=== PATIENT | female | born 1965 | race Caucasian/White ===

== ENCOUNTER 2016-11-09 16:58 | Inpatient (IN) | payer BC ==
--- NOTE | 2016-11-09 18:20 | PCM.HP ---
H&P History of Present Illness - General Date of Service: 11/09/16 Source of Information: Patient, Family History Limitations: Reports: No Limitations - History of Present Illness Initial Comments - Free Text/Narative: She started feeling weak this morning and unable to continue with work and went home. She has be N and Vomiting. She also has pain with a shallow breath and is short of breath. She has a significant headache. Also having dizziness with an motion. Onset of Symptoms: Reports: Today Duration of Symptoms: Reports: Hour(s): Location: Reports: Head, Chest Quality: Reports: Ache Severity: Severe Improves with: Reports: Immobilization Worsens with: Reports: Breathing Associated Symptoms: Reports: Cough, Nausea/Vomiting, Shortness of Breath Headache Pain Score (Numeric/FACES): 6 - Related Data Allergies/Adverse Reactions: Allergies Allergy/AdvReac Type Severity Reaction Status Date / Time Penicillins Allergy Mild Hives Verified 07/29/16 13:39 Sulfa (Sulfonamide Allergy hives Verified 07/29/16 13:39 Antibiotics) itching Home Medications: Home Meds Estradiol [Estrace] 1 mg PO DAILY 02/02/13 [History] Multivitamin [Multi-Vitamin Daily] 1 each PO DAILY 09/06/15 [History] Topiramate [Topiramate] 50 mg PO BID 09/09/15 [History] Dextroamphetamine/Amphetamine [Adderall] 30 mg PO QAM 02/07/16 [History] Prazosin HCl [Prazosin] 2 mg PO BEDTIME 02/07/16 [History] QUEtiapine Fumarate [Seroquel] 25 - 50 mg PO BEDTIME 02/07/16 [History] QUEtiapine Fumarate [Seroquel] 25 - 50 mg PO BID PRN 02/07/16 [History] fentaNYL [Fentanyl] 25 mcg TD ASDIRECTED 02/07/16 [History] oxyCODONE 5 mg PO ASDIRECTED PRN 02/07/16 [History] Metoprolol Succinate [Toprol XL] 50 mg PO DAILY 02/10/16 [History] Methocarbamol 750 mg PO Q4HR PRN 04/20/16 [History] Past Medical History - Past Health History Medical/Surgical History: Denies Medical/Surgical History HEENT History: Reports: Cataract, Sinusitis Cardiovascular History: Reports: High Cholesterol, Hypertension Genitourinary History: Reports: Pyelonephritis, UTI, Recurrent [employer] History: Reports: , Prolapsed Uterus Musculoskeletal History: Reports: Back Pain, Chronic, Other (See Below) Other Musculoskeletal History: epicondilitis Neurological History: Reports: Concussion Psychiatric History: Reports: ADHD, Anxiety, Depression, Learning Disability, Mood Swings, Panic Attack, PTSD Dermatologic History: Reports: Other (See Below) Other Dermatologic History: excessive dryness - Infectious Disease History Infectious Disease History: Reports: Chicken Pox - Past Surgical History Head Surgeries/Procedures: Reports: None HEENT Surgical History: Reports: Cataract Surgery, Other (See Below) GI Surgical History: Reports: Appendectomy, Colonoscopy, Hernia, Abdominal Female Surgical History: Reports: Cervical Cryotherapy, Hysterectomy Musculoskeletal Surgical History: Reports: Carpal Tunnel, Other (See Below) Social & Family History - Family History Family Medical History: Noncontributory - Tobacco Use Smoking Status *Q: Current Every Day Smoker Years of Tobacco use: 35 Packs/Tins Daily: 1 Used Tobacco, but Quit: No Month Tobacco Last Used: JAN Second Hand Smoke Exposure: Yes - Caffeine Use Caffeine Use: Reports: Soda - Alcohol Use Days Per Week of Alcohol Use: 0 - Recreational Drug Use Recreational Drug Use: No H&P Review of Systems - Review of Systems: Review Of Systems: See Below General: Reports: Fever, Chills, Weakness, Decreased Appetite HEENT: Reports: Headaches, Vertigo Pulmonary: Reports: Shortness of Breath, Wheezing, Cough Cardiovascular: Reports: No Symptoms, Dyspnea on Exertion Gastrointestinal: Reports: Diarrhea, Nausea, Vomiting Genitourinary: Reports: No Symptoms Musculoskeletal: Reports: No Symptoms, Back Pain, Muscle Pain, Muscle Stiffness Skin: Reports: No Symptoms Psychiatric: Reports: Depression Neurological: Reports: Dizziness, Headache, Difficulty Walking, Weakness Exam - Exam Exam: See Below - Vital Signs Weight: 188 lb 4.396 oz - Exam General: Alert, Oriented, 4 HEENT: PERRLA, Hearing Intact, Mucosa Moist & [place], Nares Patent, Normal Nasal Septum, Posterior Pharynx Clear, Conjunctiva Clear, EOMI, EACs Clear, TMs Clear Neck: Supple Lungs: Clear to Auscultation, Normal Respiratory Effort Cardiovascular: Regular Rate, Regular Rhythm GI/Abdominal Exam: Normal Bowel Sounds, Soft, Non-Tender, No Organomegaly, No Distention, No Abnormal Bruit, No Mass, Pelvis Stable Peripheral Pulses: 1+: Radial (L), Radial (R) Skin: Warm, Dry, Intact Neurological: Cranial Nerves Intact, Reflexes Equal Bilateral, Strength Equal Bilateral Neuro Extensive - Mental Status: Alert, Oriented x3, Normal Mood/Affect, Normal Cognition - Patient Data Result Diagrams: 11/11/16 05:47 11/10/16 04:45 *Q Meaningful Use (ADM) - VTE *Q VTE Criteria *Q: - Stroke *Q Stroke Criteria *Q: - AMI *Q AMI Criteria *Q: Problem List Initiated/Reviewed/Updated: Yes Orders Last 24hrs: Active Orders 24 hr Category Date Time Status Azithromycin [Zithromax] 500 mg Med 11/09/16 19:00 Active Sodium Chloride 0.9% [Normal Saline] 250 ml IV Q24H cefTRIAXone [Rocephin] 1 gm Med 11/09/16 18:00 Active Sodium Chloride 0.9% [Normal Saline] 50 ml IV Q24H Medication Orders Ceftriaxone Sodium 1 gm/ (Sodium Chloride) 50 mls @ 100 mls/hr IV Q24H [facility] Azithromycin 500 mg/ Sodium (Chloride) 250 mls @ 250 mls/hr IV Q24H [facility] Assessment/Plan Comment:: Assessment/Plan: #1. Respiratory distress with elevated WBC: Will do blood cultures and urine cultures. WBC 18,000 #2. Back and neck Pain #4. ADHD: chronic. #5. DJD Hips:
[2016-11-09] MEDS ORDERED: Ondansetron 4 MG/2 ML SDV IV PRN (18:33)
[2016-11-09] MEDS: cefTRIAXone 1 GM in Sodium Chloride 0.9% 50 ML IV SCH (18:54)
[2016-11-09] MEDS: Azithromycin 500 MG in Sodium Chloride 0.9% 250 ML IV SCH (19:54)
[2016-11-09] MEDS: Dextrose 5%-0.9% NaCl 1,000 ML IV SCH (19:58)
[2016-11-09] MEDS: Codeine/guaiFENesin 100mg-10 MG/5 ML Syrup 10 ML Cup PO PRN (20:00)
[2016-11-09] MEDS ORDERED: Methocarbamol 500 MG Tab PO PRN (21:04)
[2016-11-10] MEDS: Dextrose 5%-0.9% NaCl 1,000 ML IV SCH ×3 (05:04→22:36)
[2016-11-10] MEDS ORDERED: fentaNYL 25 MCG/HR Transdermal Patch TRDERM SCH (09:00)
[2016-11-10] MEDS ORDERED: Non-Formulary Medication 1 Each TOP SCH (09:00)
[2016-11-10] MEDS: Amphetamine/Dextroamphetamine Salts 10 MG Tab PO SCH (09:20)
[2016-11-10] MEDS: Metoprolol Succinate 50 MG Tab.ER PO SCH (09:21)
[2016-11-10] MEDS: Enoxaparin 40 MG/0.4 ML Syringe SUBCUT SCH (09:22)
[2016-11-10] MEDS: Estradiol 0.5 MG Tab PO SCH (09:22)
[2016-11-10] MEDS: Multivitamins with Iron/Calcium/Folic Acid/Minerals Tab PO SCH (09:22)
[2016-11-10] MEDS: Topiramate 25 MG Tab PO SCH ×2 (09:23→21:19)
[2016-11-10] MEDS: QUEtiapine 25 MG Tab PO PRN ×2 (09:37→14:33)
[2016-11-10] MEDS: Lactobacillus Rhamnosus GG (Probiotic) Cap PO SCH ×2 (10:44→21:15)
--- NOTE | 2016-11-10 13:56 | CT ---
Chest CT. History: Evaluate interstitial process of the right mid and lower lung bang. Technique: Unenhanced axial images were obtained from the lung apices extending through the hemidiap hragms. Coronal images were reconstructed. Total DLP: 386. Findings: There are bilateral scattered areas of groundglass opacities. The findings are most prominent involv ing the right middle and right lower lobes. There are no alveolar infiltrates. There is a small calc ified granuloma laterally in the right mid lung. There are small pleural effusions bilaterally. Ther e is a prominent right paratracheal lymph node measuring 2.4 cm. There is an enlarged subcarinal nod e as well. The node measures 3.7 x 1.8 cm. Additional smaller mediastinal and right paratracheal nod es are seen. Limited evaluation of the upper abdomen demonstrates no abnormalities. The skeletal str uctures demonstrate no significant findings. Impression: 1. Scattered groundglass opacities bilaterally. The findings suggest a interstitial pneumonitis. The re are several possible etiologies. There is also adenopathy involving the mediastinum. The nodes ar e likely reactive. Clinical correlation recommended. A lymphoproliferative disorder such as lymphoma cannot be excluded. Follow-up is recommended.
[2016-11-10] MEDS: Nicotine 14 MG/24 Hr Patch TRDERM SCH (15:40)
[2016-11-10] MEDS ORDERED: Acetaminophen 325 MG Tab PO PRN (16:41)
[2016-11-10] MEDS: oxyCODONE 5 MG Tab PO PRN (17:09)
[2016-11-10] MEDS: cefTRIAXone 1 GM in Sodium Chloride 0.9% 50 ML IV SCH (17:16)
--- NOTE | 2016-11-10 17:38 | PCM.PN ---
- General Info Date of Service: 11/10/16 Functional Status: Reports: Pain Controlled - Review of Systems General: Reports: Weakness HEENT: Reports: Headaches Pulmonary: Reports: Shortness of Breath, Cough, Wheezing Cardiovascular: Reports: Dyspnea on Exertion Gastrointestinal: Reports: Abdominal Pain, Decreased Appetite, Nausea Genitourinary: Reports: No Symptoms Musculoskeletal: Reports: No Symptoms Skin: Reports: No Symptoms Neurological: Reports: No Symptoms Psychiatric: Reports: No Symptoms - Patient Data Vitals - Most Recent: Last Vital Signs Temp 100.4 F 11/10/16 17:07 Pulse 73 11/10/16 15:00 Resp 18 11/10/16 11:00 BP 100/58 L 11/10/16 15:00 Pulse Ox 98 11/10/16 15:00 Weight - Most Recent: 185 lb 3.189 oz I&O - Last 24 Hours: Intake & Output 11/10/16 11/10/16 11/10/16 06:59 14:59 22:59 Intake Total 2544 570 6810 Output Total 850 600 700 Balance 526 -360 1040 Lab Results Last 24 Hours: Laboratory Results - last 24 hr 11/09/16 11/10/16 11/10/16 Range/Units 18:17 04:45 04:45 WBC 10.8 (4.5-11.0) K/uL RBC 3.97 (3.30-5.50) M/uL Hgb 12.1 (12.0-15.0) g/dL Hct 36.7 (36.0-48.0) % MCV 92 (80-98) fL MCH 31 (27-31) pg MCHC 33 (32-36) % Plt Count 339 (150-400) K/uL Neut % (Auto) 73 H (36-66) % Lymph % (Auto) 15 L (24-44) % [place] % (Auto) 9 H (2-6) % Eos % (Auto) 3 (2-4) % Baso % (Auto) 0 (0-1) % Sodium 141 (140-148) mmol/L Potassium 3.7 (3.6-5.2) mmol/L Chloride 107 (100-108) mmol/L Carbon Dioxide 28 (21-32) mmol/L Anion Gap 6.5 (5.0-14.0) mmol/L BUN 7 (7-18) mg/dL Creatinine 0.6 (0.6-1.0) mg/dL Est Cr Clr Drug Dosing 106.23 mL/min Estimated GFR (MDRD) > 60 (>60) Glucose 113 H (74-106) mg/dL Calcium 8.3 L (8.5-10.1) mg/dL Total Bilirubin 0.4 (0.2-1.0) mg/dL AST 8 L (15-37) U/L ALT 12 (12-78) U/L Alkaline Phosphatase 100 (46-116) U/L Total Protein 7.0 (6.4-8.2) g/dL Albumin 2.9 L (3.4-5.0) g/dL Globulin 4.1 H (2.3-3.5) g/dL Albumin/Globulin Ratio 0.7 L (1.2-2.2) Urine Color Yellow Urine Appearance Clear Urine pH 7.0 (4.5-8.0) Ur Specific [place] 1.010 (1.008-1.030) Urine Protein Negative (NEGATIVE) mg/dL Urine Glucose (UA) Normal (NEGATIVE) mg/dL Urine Ketones Negative (NEGATIVE) mg/dL Urine Occult Blood Negative (NEGATIVE) Urine Nitrite Negative (NEGATIVE) Urine Bilirubin Negative (NEGATIVE) Urine Urobilinogen Normal (NORMAL) mg/dL Ur Leukocyte Esterase Negative (NEGATIVE) Urine RBC 0-5 (0-5) Urine WBC 0-5 (0-5) Ur Epithelial Cells Moderate Amorphous Sediment Few Urine Bacteria Few Urine Mucus Few Silverio Results Last 24 Hours: Microbiology 11/10/16 11:41 Clostridium difficile (PCR) - Final Stool / Feces NEGATIVE CDIFF TOXIN Med Orders - Current: Current Medications Acetaminophen (Tylenol) 650 mg PO Q6H PRN PRN Reason: Fever Last Admin: 11/10/16 17:07 Dose: 650 mg Amphetamine/Dextroamphetamine (Adderall) 30 mg PO DAILY [facility] Last Admin: 11/10/16 09:20 Dose: 30 mg Enoxaparin Sodium (Lovenox) 40 mg SUBCUT DAILY [facility] Last Admin: 11/10/16 09:22 Dose: 40 mg Estradiol (Estradiol) 1 mg PO DAILY [facility] Last Admin: 11/10/16 09:22 Dose: 1 mg Fentanyl (Duragesic) 25 mcg TRDERM Q72H [facility] Last Admin: 11/10/16 09:21 Dose: 25 mcg Guaifenesin/Codeine Phosphate (Robitussin Ac) 10 ml PO Q4H PRN PRN Reason: Cough Last Admin: 11/09/16 20:00 Dose: 10 ml Ceftriaxone Sodium 1 gm/ (Sodium Chloride) 50 mls @ 100 mls/hr IV Q24H [facility] Last Admin: 11/10/16 17:16 Dose: 100 mls/hr Azithromycin 500 mg/ Sodium (Chloride) 250 mls @ 250 mls/hr IV Q24H [facility] Stop: 11/10/16 20:00 Last Admin: 11/09/16 19:54 Dose: 250 mls/hr Dextrose/Sodium Chloride (Dextrose 5%-Normal Saline) 1,000 mls @ 125 mls/hr IV ASDIRECTED [facility] Last Admin: 11/10/16 13:06 Dose: 125 mls/hr Azithromycin 500 mg/ Sodium (Chloride) 250 mls @ 250 mls/hr IV Q24H [facility] Lactobacillus Rhamnosus (Culturelle) 2 cap PO BID [facility] Last Admin: 11/10/16 10:44 Dose: 2 cap Methocarbamol (Robaxin) 750 mg PO Q6H PRN PRN Reason: Spasms Metoprolol Succinate (Toprol Xl) 50 mg PO DAILY [facility] Last Admin: 11/10/16 09:21 Dose: 50 mg Multivitamins/Minerals (Thera M Plus) 1 tab PO DAILY [facility] Last Admin: 11/10/16 09:22 Dose: 1 tab Nicotine (Habitrol) 14 mg TRDERM DAILY [facility] Last Admin: 11/10/16 15:40 Dose: 14 mg Fentanyl Patch Check 0 each TOP BID [facility] Ondansetron HCl (Zofran) 4 mg IV Q4H PRN PRN Reason: Nausea/Vomiting Oxycodone HCl (Oxycodone) 5 mg PO Q4H PRN PRN Reason: Pain (moderate 4-6) Last Admin: 11/10/16 17:09 Dose: 5 mg Prazosin HCl (Minpress) 2 mg PO BEDTIME [facility] Quetiapine Fumarate (Seroquel) 25 - 50 mg PO BEDTIME [facility] Quetiapine Fumarate (Seroquel) 0 mg PO BID PRN PRN Reason: Anxiety Last Admin: 11/10/16 14:33 Dose: 50 mg Topiramate (Topamax) 50 mg PO BID [facility] Last Admin: 11/10/16 09:23 Dose: 50 mg Discontinued Medications Non-Formulary Medication (Nf Drug) 0 each TOP DAILY [facility] - Problem List Review Problem List Initiated/Reviewed/Updated: Yes - My Orders Last 24 Hours: My Active Orders 11/09/16 18:00 cefTRIAXone [Rocephin] 1 gm Sodium Chloride 0.9% [Normal Saline] 50 ml IV Q24H 11/09/16 18:17 CULTURE BLOOD [BC] Urgent CULTURE BLOOD [BC] Urgent Blood Culture x2 Reflex Set [OM.PC] Urgent 11/09/16 18:33 Patient Status [ADT] Routine Ambulate [RC] QID Height and Weight [RC] DAILY Oxygen Therapy [RC] Q12H Up ad [place] [RC] ASDIRECTED Up to Chair [RC] QID VTE/DVT Education [RC] Per Unit Routine Vital Signs [RC] Q4H Ondansetron [Zofran] 4 mg IV Q4H PRN Resuscitation Status Routine 11/09/16 18:36 CULTURE URINE [RM] Routine 11/09/16 18:39 Intake and Output [RC] .PRN 11/09/16 19:00 Azithromycin [Zithromax] 500 mg Sodium Chloride 0.9% [Normal Saline] 250 ml IV Q24H 11/09/16 19:33 Codeine/guaiFENesin [Robitussin AC] 10 ml PO Q4H PRN 11/09/16 19:45 Dextrose 5%-0.9% NaCl [Dextrose 5%-Normal Saline] 1,000 ml IV ASDIRECTED 11/09/16 21:04 Methocarbamol [Robaxin] 750 mg PO Q6H PRN oxyCODONE 5 mg PO Q4H PRN 11/10/16 07:33 QUEtiapine [SEROquel] See Dose Instructions PO BID PRN 11/10/16 09:00 Amphetamine/Dextroamphetamine [Adderall] 30 mg PO DAILY Enoxaparin [Lovenox] 40 mg SUBCUT DAILY Estradiol 1 mg PO DAILY Metoprolol Succinate [Toprol XL] 50 mg PO DAILY Multivitamins w-Iron/Ca/FA/Min [Thera M Plus] 1 tab PO DAILY Topiramate [Topamax] 50 mg PO BID fentaNYL [Duragesic] 25 mcg TRDERM Q72H 11/10/16 10:30 Lactobacillus Rhamnosus GG [Culturelle] 2 cap PO BID 11/10/16 15:00 Nicotine [Habitrol] 14 mg TRDERM DAILY 11/10/16 16:41 Acetaminophen [Tylenol] 650 mg PO Q6H PRN 11/10/16 21:00 Non-Formulary Medication [NF Drug] 0 each TOP BID Prazosin [Minpress] 2 mg PO BEDTIME QUEtiapine [SEROquel] 25 - 50 mg PO BEDTIME 11/10/16 Breakfast Regular Diet [DIET] 11/11/16 05:11 CXR [Chest 2V] [CR] Routine CBC WITH AUTO DIFF [HEME] Routine 11/11/16 20:00 Azithromycin [Zithromax] 500 mg Sodium Chloride 0.9% [Normal Saline] 250 ml IV Q24H - Plan Plan:: Assessment/Plan: #1. Respiratory distress with elevated WBC: CT of the lung showed graoudglass opasities consistent with intersititial pneumonitis. Had a fever tonight. Waiting for the cultures. #2. Back and neck Pain: stabale #4. ADHD: chronic. #5. DJD Hips:
[2016-11-10] MEDS: Azithromycin 500 MG in Sodium Chloride 0.9% 250 ML IV SCH (18:18)
[2016-11-10] MEDS: Prazosin 1 MG Cap PO SCH (21:16)
[2016-11-10] MEDS: FENTANYL PATCH CHECK TOP SCH (21:18)
[2016-11-10] MEDS: QUEtiapine 25 MG Tab PO SCH (21:19)
[2016-11-10] MEDS: Codeine/guaiFENesin 100mg-10 MG/5 ML Syrup 10 ML Cup PO PRN (21:23)
[2016-11-11] MEDS: oxyCODONE 5 MG Tab PO PRN ×4 (05:00→21:25)
[2016-11-11] MEDS: Dextrose 5%-0.9% NaCl 1,000 ML IV SCH ×2 (06:34→14:28)
[2016-11-11] MEDS: Estradiol 0.5 MG Tab PO SCH (08:32)
[2016-11-11] MEDS: Topiramate 25 MG Tab PO SCH ×2 (08:32→21:24)
[2016-11-11] MEDS: Enoxaparin 40 MG/0.4 ML Syringe SUBCUT SCH (08:32)
[2016-11-11] MEDS: Multivitamins with Iron/Calcium/Folic Acid/Minerals Tab PO SCH (08:32)
[2016-11-11] MEDS: Metoprolol Succinate 50 MG Tab.ER PO SCH (08:37)
[2016-11-11] MEDS: Lactobacillus Rhamnosus GG (Probiotic) Cap PO SCH ×2 (08:37→21:24)
[2016-11-11] MEDS: Nicotine 14 MG/24 Hr Patch TRDERM SCH (08:38)
[2016-11-11] MEDS: Amphetamine/Dextroamphetamine Salts 10 MG Tab PO SCH (08:40)
[2016-11-11] MEDS: FENTANYL PATCH CHECK TOP SCH ×2 (08:54→21:30)
[2016-11-11] MEDS: QUEtiapine 25 MG Tab PO PRN ×2 (11:51→16:07)
--- NOTE | 2016-11-11 17:26 | PCM.PN ---
- General Info Date of Service: 11/11/16 Functional Status: Reports: Pain Controlled - Review of Systems General: Reports: Weakness, Other (Continues to have back pain in the chest area ) HEENT: Reports: Dysphasia Pulmonary: Reports: Shortness of Breath Cardiovascular: Reports: No Symptoms Gastrointestinal: Reports: No Symptoms Genitourinary: Reports: No Symptoms Musculoskeletal: Reports: No Symptoms Skin: Reports: No Symptoms Neurological: Reports: No Symptoms Psychiatric: Reports: Depression, Anxiety - Patient Data Vitals - Most Recent: Last Vital Signs Temp 97.9 F 11/11/16 15:59 Pulse 69 11/11/16 15:59 Resp 18 11/11/16 15:59 BP 137/76 11/11/16 15:59 Pulse Ox 97 11/11/16 15:59 Weight - Most Recent: 185 lb 3.013 oz I&O - Last 24 Hours: Intake & Output 11/11/16 11/11/16 11/11/16 06:59 14:59 22:59 Intake Total 1600 Balance 1600 Lab Results Last 24 Hours: Laboratory Results - last 24 hr 11/11/16 Range/Units 05:47 WBC 7.3 (4.5-11.0) K/uL RBC 3.65 (3.30-5.50) M/uL Hgb 11.2 L (12.0-15.0) g/dL Hct 34.7 L (36.0-48.0) % MCV 95 (80-98) fL MCH 31 (27-31) pg MCHC 32 (32-36) % Plt Count 333 (150-400) K/uL Neut % (Auto) 52 (36-66) % Lymph % (Auto) 30 (24-44) % [place] % (Auto) 10 H (2-6) % Eos % (Auto) 6 H (2-4) % Baso % (Auto) 2 H (0-1) % Silverio Results Last 24 Hours: Microbiology 11/09/16 18:36 Urine Culture - Preliminary Urine, Clean Catch MIXED ASHLEY DAY 1 11/09/16 18:17 Aerobic Blood Culture - Preliminary Blood - Venous - Lab Draw NO GROWTH AFTER 1 DAY Anaerobic Blood Culture - Preliminary NO GROWTH AFTER 1 DAY 11/09/16 18:17 Aerobic Blood Culture - Preliminary Blood - Venous NO GROWTH AFTER 1 DAY Anaerobic Blood Culture - Preliminary NO GROWTH AFTER 1 DAY 11/10/16 11:41 Clostridium difficile (PCR) - Final Stool / Feces NEGATIVE CDIFF TOXIN Med Orders - Current: Current Medications Acetaminophen (Tylenol) 650 mg PO Q6H PRN PRN Reason: Fever Last Admin: 11/10/16 17:07 Dose: 650 mg Amphetamine/Dextroamphetamine (Adderall) 30 mg PO DAILY [facility] Last Admin: 11/11/16 08:40 Dose: 30 mg Enoxaparin Sodium (Lovenox) 40 mg SUBCUT DAILY [facility] Last Admin: 11/11/16 08:32 Dose: 40 mg Estradiol (Estradiol) 1 mg PO DAILY [facility] Last Admin: 11/11/16 08:32 Dose: 1 mg Fentanyl (Duragesic) 25 mcg TRDERM Q72H [facility] Last Admin: 11/10/16 09:21 Dose: 25 mcg Guaifenesin/Codeine Phosphate (Robitussin Ac) 10 ml PO Q4H PRN PRN Reason: Cough Last Admin: 11/10/16 21:23 Dose: 10 ml Ceftriaxone Sodium 1 gm/ (Sodium Chloride) 50 mls @ 100 mls/hr IV Q24H [facility] Last Admin: 11/10/16 17:16 Dose: 100 mls/hr Dextrose/Sodium Chloride (Dextrose 5%-Normal Saline) 1,000 mls @ 125 mls/hr IV ASDIRECTED [facility] Last Admin: 11/11/16 14:28 Dose: 125 mls/hr Azithromycin 500 mg/ Sodium (Chloride) 250 mls @ 250 mls/hr IV Q24H [facility] Lactobacillus Rhamnosus (Culturelle) 2 cap PO BID [facility] Last Admin: 11/11/16 08:37 Dose: 2 cap Methocarbamol (Robaxin) 750 mg PO Q6H PRN PRN Reason: Spasms Metoprolol Succinate (Toprol Xl) 50 mg PO DAILY [facility] Last Admin: 11/11/16 08:37 Dose: 50 mg Multivitamins/Minerals (Thera M Plus) 1 tab PO DAILY [facility] Last Admin: 11/11/16 08:32 Dose: 1 tab Nicotine (Habitrol) 14 mg TRDERM DAILY [facility] Last Admin: 11/11/16 08:38 Dose: 14 mg Fentanyl Patch Check 0 each TOP BID [facility] Last Admin: 11/11/16 08:54 Dose: Not Given Ondansetron HCl (Zofran) 4 mg IV Q4H PRN PRN Reason: Nausea/Vomiting Last Admin: 11/11/16 08:45 Dose: 4 mg Oxycodone HCl (Oxycodone) 5 mg PO Q4H PRN PRN Reason: Pain (moderate 4-6) Last Admin: 11/11/16 16:07 Dose: 5 mg Prazosin HCl (Minpress) 2 mg PO BEDTIME [facility] Last Admin: 11/10/16 21:16 Dose: 2 mg Quetiapine Fumarate (Seroquel) 25 - 50 mg PO BEDTIME [facility] Last Admin: 11/10/16 21:19 Dose: 50 mg Quetiapine Fumarate (Seroquel) 0 mg PO BID PRN PRN Reason: Anxiety Last Admin: 11/11/16 16:07 Dose: 50 mg Topiramate (Topamax) 50 mg PO BID [facility] Last Admin: 11/11/16 08:32 Dose: 50 mg Discontinued Medications Azithromycin 500 mg/ Sodium (Chloride) 250 mls @ 250 mls/hr IV Q24H [facility] Stop: 11/10/16 20:00 Last Admin: 11/10/16 18:18 Dose: 250 mls/hr Non-Formulary Medication (Nf Drug) 0 each TOP DAILY [facility] - Exam General: Alert, Oriented Neck: Supple Lungs: Wheezing Cardiovascular: Regular Rate, Regular Rhythm GI/Abdominal Exam: Normal Bowel Sounds, Soft, Non-Tender, No Organomegaly, No Distention, No Abnormal Bruit, No Mass, Pelvis Stable Peripheral Pulses: 1+: Radial (L), Radial (R) - Problem List Review Problem List Initiated/Reviewed/Updated: Yes - My Orders Last 24 Hours: My Active Orders 11/10/16 16:41 Acetaminophen [Tylenol] 650 mg PO Q6H PRN 11/10/16 21:00 Non-Formulary Medication [NF Drug] 0 each TOP BID Prazosin [Minpress] 2 mg PO BEDTIME QUEtiapine [SEROquel] 25 - 50 mg PO BEDTIME 11/11/16 20:00 Azithromycin [Zithromax] 500 mg Sodium Chloride 0.9% [Normal Saline] 250 ml IV Q24H - Plan Plan:: Assessment/Plan: #1. Respiratory distress with elevated WBC: CT of the lung showed graoudglass opasities consistent with intersititial pneumonitis. No fever today cultures neg. so far.. #2. Back and neck Pain: stabale #4. ADHD: chronic. #5. DJD Hips: Chronic
[2016-11-11] MEDS ORDERED: Temazepam 15 MG Cap PO ONE (17:38)
[2016-11-11] MEDS: cefTRIAXone 1 GM in Sodium Chloride 0.9% 50 ML IV SCH (18:01)
[2016-11-11] MEDS ORDERED: Azithromycin 500 MG in Sodium Chloride 0.9% 250 ML IV SCH (20:00)
[2016-11-11] MEDS ORDERED: Temazepam 15 MG Cap ONE (21:19)
[2016-11-11] MEDS: QUEtiapine 25 MG Tab PO SCH (21:24)
[2016-11-11] MEDS: Prazosin 1 MG Cap PO SCH (21:25)
[2016-11-12] MEDS: Dextrose 5%-0.9% NaCl 1,000 ML IV SCH ×2 (00:09→09:37)
[2016-11-12] MEDS: Codeine/guaiFENesin 100mg-10 MG/5 ML Syrup 10 ML Cup PO PRN (00:17)
[2016-11-12] MEDS: Estradiol 0.5 MG Tab PO SCH (09:31)
[2016-11-12] MEDS: Topiramate 25 MG Tab PO SCH (09:31)
[2016-11-12] MEDS: Metoprolol Succinate 50 MG Tab.ER PO SCH (09:31)
[2016-11-12] MEDS: Lactobacillus Rhamnosus GG (Probiotic) Cap PO SCH (09:31)
[2016-11-12] MEDS: Nicotine 14 MG/24 Hr Patch TRDERM SCH (09:34)
[2016-11-12] MEDS: Multivitamins with Iron/Calcium/Folic Acid/Minerals Tab PO SCH (09:34)
[2016-11-12] MEDS: Enoxaparin 40 MG/0.4 ML Syringe SUBCUT SCH (09:36)
[2016-11-12] MEDS: Amphetamine/Dextroamphetamine Salts 10 MG Tab PO SCH (09:37)
[2016-11-12] MEDS: FENTANYL PATCH CHECK TOP SCH (09:37)
--- NOTE | 2016-11-12 09:58 | CR ---
Two-view chest Comparison: 2 days prior. Findings: The heart and vascular structures are stable. There appears be mild improvement. Decreased interstitial infiltrate is present in the right midlung field. There is no significant change in th e right lung base. The left lung is stable. Impression: 1. Residual interstitial infiltrates visualized on the right. There is mild improvement.
[2016-11-12] MEDS: oxyCODONE 5 MG Tab PO PRN (11:33)
[2016-11-12] MEDS: QUEtiapine 25 MG Tab PO PRN (12:03)
[2016-11-12 14:34] VITALS: BP 161/86
--- NOTE | 2016-11-13 07:53 | PCM.PN ---
- General Info Date of Service: 11/12/16 Functional Status: Reports: Pain Controlled - Review of Systems General: Reports: No Symptoms HEENT: Reports: No Symptoms Pulmonary: Reports: Cough Cardiovascular: Reports: No Symptoms Gastrointestinal: Reports: No Symptoms Genitourinary: Reports: No Symptoms Musculoskeletal: Reports: No Symptoms Skin: Reports: No Symptoms Neurological: Reports: No Symptoms Psychiatric: Reports: Depression, Anxiety - Patient Data Vitals - Most Recent: Last Vital Signs Temp 97.8 F 11/12/16 13:00 Pulse 67 11/12/16 13:00 Resp 20 11/12/16 13:00 BP 161/86 H 11/12/16 13:00 Pulse Ox 100 11/12/16 13:00 Weight - Most Recent: 187 lb 6.287 oz [facility] Results Last 24 Hours: Microbiology 11/09/16 18:17 Aerobic Blood Culture - Preliminary Blood - Venous - Lab Draw NO GROWTH AFTER 3 DAYS Anaerobic Blood Culture - Preliminary NO GROWTH AFTER 3 DAYS 11/09/16 18:17 Aerobic Blood Culture - Preliminary Blood - Venous NO GROWTH AFTER 3 DAYS Anaerobic Blood Culture - Preliminary NO GROWTH AFTER 3 DAYS 11/09/16 18:36 Urine Culture - Final Urine, Clean Catch MIXED ASHLEY DAY 2 Med Orders - Current: Current Medications Discontinued Medications Acetaminophen (Tylenol) 650 mg PO Q6H PRN PRN Reason: Fever Last Admin: 11/10/16 17:07 Dose: 650 mg Amphetamine/Dextroamphetamine (Adderall) 30 mg PO DAILY [facility] Last Admin: 11/12/16 09:37 Dose: 30 mg Enoxaparin Sodium (Lovenox) 40 mg SUBCUT DAILY [facility] Last Admin: 11/12/16 09:36 Dose: 40 mg Estradiol (Estradiol) 1 mg PO DAILY [facility] Last Admin: 11/12/16 09:31 Dose: 1 mg Fentanyl (Duragesic) 25 mcg TRDERM Q72H [facility] Last Admin: 11/10/16 09:21 Dose: 25 mcg Guaifenesin/Codeine Phosphate (Robitussin Ac) 10 ml PO Q4H PRN PRN Reason: Cough Last Admin: 11/12/16 00:17 Dose: 10 ml Ceftriaxone Sodium 1 gm/ (Sodium Chloride) 50 mls @ 100 mls/hr IV Q24H [facility] Last Admin: 11/11/16 18:01 Dose: 100 mls/hr Azithromycin 500 mg/ Sodium (Chloride) 250 mls @ 250 mls/hr IV Q24H [facility] Stop: 11/10/16 20:00 Last Admin: 11/10/16 18:18 Dose: 250 mls/hr Dextrose/Sodium Chloride (Dextrose 5%-Normal Saline) 1,000 mls @ 125 mls/hr IV ASDIRECTED [facility] Last Admin: 11/12/16 09:37 Dose: 125 mls/hr Azithromycin 500 mg/ Sodium (Chloride) 250 mls @ 250 mls/hr IV Q24H [facility] Last Admin: 11/11/16 19:58 Dose: 250 mls/hr Lactobacillus Rhamnosus (Culturelle) 2 cap PO BID [facility] Last Admin: 11/12/16 09:31 Dose: 2 cap Methocarbamol (Robaxin) 750 mg PO Q6H PRN PRN Reason: Spasms Metoprolol Succinate (Toprol Xl) 50 mg PO DAILY [facility] Last Admin: 11/12/16 09:31 Dose: 50 mg Multivitamins/Minerals (Thera M Plus) 1 tab PO DAILY [facility] Last Admin: 11/12/16 09:34 Dose: 1 tab Nicotine (Habitrol) 14 mg TRDERM DAILY [facility] Last Admin: 11/12/16 09:34 Dose: 14 mg Non-Formulary Medication (Nf Drug) 0 each TOP DAILY [facility] Fentanyl Patch Check 0 each TOP BID [facility] Last Admin: 11/12/16 09:37 Dose: Not Given Ondansetron HCl (Zofran) 4 mg IV Q4H PRN PRN Reason: Nausea/Vomiting Last Admin: 11/11/16 08:45 Dose: 4 mg Oxycodone HCl (Oxycodone) 5 mg PO Q4H PRN PRN Reason: Pain (moderate 4-6) Last Admin: 11/12/16 11:33 Dose: 5 mg Prazosin HCl (Minpress) 2 mg PO BEDTIME [facility] Last Admin: 11/11/16 21:25 Dose: 2 mg Quetiapine Fumarate (Seroquel) 25 - 50 mg PO BEDTIME [facility] Last Admin: 11/11/16 21:24 Dose: 50 mg Quetiapine Fumarate (Seroquel) 0 mg PO BID PRN PRN Reason: Anxiety Last Admin: 11/12/16 12:03 Dose: 50 mg Temazepam (Restoril) 15 mg PO ONETIME ONE Stop: 11/11/16 17:39 Last Admin: 11/11/16 21:26 Dose: 15 mg Temazepam (Restoril) Confirm Administered Dose 15 mg .ROUTE .STK-MED ONE Stop: 11/11/16 21:20 Last Admin: 11/11/16 21:26 Dose: Not Given Topiramate (Topamax) 50 mg PO BID [facility] Last Admin: 11/12/16 09:31 Dose: 50 mg - Exam General: Alert, Oriented HEENT: Pupils Equal, Pupils Reactive, EOMI, Mucous Membr. Moist/[place] Neck: Supple Lungs: Clear to Auscultation, Normal Respiratory Effort Cardiovascular: Regular Rate, Regular Rhythm GI/Abdominal Exam: Normal Bowel Sounds, Soft, Non-Tender, No Organomegaly, No Distention, No Abnormal Bruit, No Mass, Pelvis Stable Extremities: Normal Inspection, Normal Range of Motion, Non-Tender, No Pedal Edema, Normal Capillary Refill Peripheral Pulses: 1+: Radial (L), Radial (R) Skin: Warm, Dry, Intact Neurological: No New Focal Deficit Psy/Mental Status: Anxious - Problem List Review Problem List Initiated/Reviewed/Updated: Yes - My Orders Last 24 Hours: My Active Orders 11/12/16 13:54 Ready for Discharge [RC] PER UNIT ROUTINE - Plan Plan:: Assessment/Plan: #1. Pneumonia resolving with minimal chest pain with a deep breath. Cultures so far are negative. #2. Back and neck Pain: Chronic #4. ADHD: chronic but stable. #5. DJD Hips stable: Plan home today
--- NOTE | 2016-11-13 07:59 | PCM.DCSUM1 ---
Discharge Summary - Hospital Course Brief History: She started feeling weak the morning of admission and unable to continue with work and went home. She has be N and Vomiting. She also has pain with a shallow breath and is short of breath. She has a significant headache. Also having dizziness with any motion. She was extremely weak and unable to get a good breath and unable to walk any distance and unable to drive safely. - Discharge Data Discharge Date: 11/12/16 Discharge Disposition: Home, Self-Care 01 Condition: Good - Patient Summary/Data Hospital Course: She was placed on antibiotics and IV fluids and controlled the N and V. CT of the chest showed pneumonia. She spike a fever of over 101. Her N and V resolved and WBC's were normal upon discharge. Chest pain was resolved. She will continue with antibiotics at home. I will see in the office within one week. - Patient Instructions Diet: Usual Diet as Tolerated Driving: May Drive Today Showering/Bathing: May Shower Notify Provider of: Fever, Increased Pain - Discharge Plan Home Medications: Home Meds Estradiol [Estrace] 1 mg PO DAILY 02/02/13 [History] Multivitamin [Multi-Vitamin Daily] 1 each PO DAILY 09/06/15 [History] Topiramate 50 mg PO BID 09/09/15 [History] Dextroamphetamine/Amphetamine [Adderall] 30 mg PO QAM 02/07/16 [History] Prazosin HCl [Prazosin] 2 mg PO BEDTIME 02/07/16 [History] QUEtiapine Fumarate [Seroquel] 25 - 50 mg PO BEDTIME 02/07/16 [History] QUEtiapine Fumarate [Seroquel] 25 - 50 mg PO BID PRN 02/07/16 [History] fentaNYL [Fentanyl] 25 mcg TD ASDIRECTED 02/07/16 [History] oxyCODONE 5 mg PO ASDIRECTED PRN 02/07/16 [History] Metoprolol Succinate [Toprol XL] 50 mg PO DAILY 02/10/16 [History] Methocarbamol 750 mg PO Q4HR PRN 04/20/16 [History] Amphetamine/Dextroamphetamine [Adderall] 30 mg PO DAILY tablet 11/12/16 [Rx] Azithromycin [Zithromax] 500 mg IV Q24H #5 vial 11/12/16 [Rx] Codeine/guaiFENesin [Robitussin AC] 10 ml PO Q4H PRN #0 cup 11/12/16 [Rx] Estradiol 1 mg PO DAILY tablet 11/12/16 [Rx] Lactobacillus Rhamnosus GG [Culturelle] 2 cap PO BID cap 11/12/16 [Rx] Methocarbamol [Robaxin] 750 mg PO Q6H PRN #0 tablet 11/12/16 [Rx] Metoprolol Succinate [Toprol XL] 50 mg PO DAILY tab.er 11/12/16 [Rx] Nicotine [Habitrol] 14 mg TRDERM DAILY patch 11/12/16 [Rx] Non-Formulary Medication [NF Drug] 0 each TOP BID each 11/12/16 [Rx] Prazosin [Minpress] 2 mg PO BEDTIME cap 11/12/16 [Rx] QUEtiapine [SEROquel] 25 - 50 mg PO BEDTIME tablet 11/12/16 [Rx] Topiramate [Topamax] 50 mg PO BID tablet 11/12/16 [Rx] fentaNYL [Duragesic] 25 mcg TRDERM Q72H patch 11/12/16 [Rx] oxyCODONE 5 mg PO Q4H PRN #0 tablet 11/12/16 [Rx] Patient Handouts: Pneumonitis Forms: Return to Work, Inpatient - Discharge Summary/Plan Comment DC Time >30 min.: Yes Discharge Summary/Plan Comment: She will return to a regular diet. She will continue with her meds she was taking before admission plus the antibiotics. Assessment/Plan: #1. Pneumonia resolving with minimal chest pain with a deep breath. Cultures so far are negative. #2. Back and neck Pain: Chronic #4. ADHD: chronic but stable. #5. DJD Hips stable: - General Info Date of Service: 11/12/16 Functional Status: Reports: Pain Controlled - Review of Systems General: Reports: No Symptoms HEENT: Reports: No Symptoms Pulmonary: Reports: Cough Cardiovascular: Reports: No Symptoms Gastrointestinal: Reports: No Symptoms Genitourinary: Reports: No Symptoms Musculoskeletal: Reports: Back Pain Skin: Reports: No Symptoms Neurological: Reports: No Symptoms Psychiatric: Reports: Anxiety - Patient Data Vitals - Most Recent: Last Vital Signs Temp 97.8 F 11/12/16 13:00 Pulse 67 11/12/16 13:00 Resp 20 11/12/16 13:00 BP 161/86 H 11/12/16 13:00 Pulse Ox 100 11/12/16 13:00 Weight - Most Recent: 187 lb 6.287 oz ZHEN Results - Last 24 hrs: Microbiology 11/09/16 18:17 Aerobic Blood Culture - Preliminary Blood - Venous - Lab Draw NO GROWTH AFTER 3 DAYS Anaerobic Blood Culture - Preliminary NO GROWTH AFTER 3 DAYS 11/09/16 18:17 Aerobic Blood Culture - Preliminary Blood - Venous NO GROWTH AFTER 3 DAYS Anaerobic Blood Culture - Preliminary NO GROWTH AFTER 3 DAYS 11/09/16 18:36 Urine Culture - Final Urine, Clean Catch MIXED [facility] DAY 2 Med Orders - Current: Current Medications Discontinued Medications Acetaminophen (Tylenol) 650 mg PO Q6H PRN PRN Reason: Fever Last Admin: 11/10/16 17:07 Dose: 650 mg Amphetamine/Dextroamphetamine (Adderall) 30 mg PO DAILY [facility] Last Admin: 11/12/16 09:37 Dose: 30 mg Enoxaparin Sodium (Lovenox) 40 mg SUBCUT DAILY [facility] Last Admin: 11/12/16 09:36 Dose: 40 mg Estradiol (Estradiol) 1 mg PO DAILY [facility] Last Admin: 11/12/16 09:31 Dose: 1 mg Fentanyl (Duragesic) 25 mcg TRDERM Q72H [facility] Last Admin: 11/10/16 09:21 Dose: 25 mcg Guaifenesin/Codeine Phosphate (Robitussin Ac) 10 ml PO Q4H PRN PRN Reason: Cough Last Admin: 11/12/16 00:17 Dose: 10 ml Ceftriaxone Sodium 1 gm/ (Sodium Chloride) 50 mls @ 100 mls/hr IV Q24H [facility] Last Admin: 11/11/16 18:01 Dose: 100 mls/hr Azithromycin 500 mg/ Sodium (Chloride) 250 mls @ 250 mls/hr IV Q24H [facility] Stop: 11/10/16 20:00 Last Admin: 11/10/16 18:18 Dose: 250 mls/hr Dextrose/Sodium Chloride (Dextrose 5%-Normal Saline) 1,000 mls @ 125 mls/hr IV ASDIRECTED [facility] Last Admin: 11/12/16 09:37 Dose: 125 mls/hr Azithromycin 500 mg/ Sodium (Chloride) 250 mls @ 250 mls/hr IV Q24H [facility] Last Admin: 11/11/16 19:58 Dose: 250 mls/hr Lactobacillus Rhamnosus (Culturelle) 2 cap PO BID [facility] Last Admin: 11/12/16 09:31 Dose: 2 cap Methocarbamol (Robaxin) 750 mg PO Q6H PRN PRN Reason: Spasms Metoprolol Succinate (Toprol Xl) 50 mg PO DAILY [facility] Last Admin: 11/12/16 09:31 Dose: 50 mg Multivitamins/Minerals (Thera M Plus) 1 tab PO DAILY [facility] Last Admin: 11/12/16 09:34 Dose: 1 tab Nicotine (Habitrol) 14 mg TRDERM DAILY [facility] Last Admin: 11/12/16 09:34 Dose: 14 mg Non-Formulary Medication (Nf Drug) 0 each TOP DAILY [facility] Fentanyl Patch Check 0 each TOP BID [facility] Last Admin: 11/12/16 09:37 Dose: Not Given Ondansetron HCl (Zofran) 4 mg IV Q4H PRN PRN Reason: Nausea/Vomiting Last Admin: 11/11/16 08:45 Dose: 4 mg Oxycodone HCl (Oxycodone) 5 mg PO Q4H PRN PRN Reason: Pain (moderate 4-6) Last Admin: 11/12/16 11:33 Dose: 5 mg Prazosin HCl (Minpress) 2 mg PO BEDTIME [facility] Last Admin: 11/11/16 21:25 Dose: 2 mg Quetiapine Fumarate (Seroquel) 25 - 50 mg PO BEDTIME [facility] Last Admin: 11/11/16 21:24 Dose: 50 mg Quetiapine Fumarate (Seroquel) 0 mg PO BID PRN PRN Reason: Anxiety Last Admin: 11/12/16 12:03 Dose: 50 mg Temazepam (Restoril) 15 mg PO ONETIME ONE Stop: 11/11/16 17:39 Last Admin: 11/11/16 21:26 Dose: 15 mg Temazepam (Restoril) Confirm Administered Dose 15 mg .ROUTE .STK-MED ONE Stop: 11/11/16 21:20 Last Admin: 11/11/16 21:26 Dose: Not Given Topiramate (Topamax) 50 mg PO BID [facility] Last Admin: 11/12/16 09:31 Dose: 50 mg - Exam General: Reports: Alert, Oriented HEENT: Reports: Pupils Equal, Pupils Reactive, EOMI, Mucous Membr. Moist/[place] Neck: Reports: Supple Lungs: Reports: Clear to Auscultation, Normal Respiratory Effort Cardiovascular: Reports: Regular Rate, Regular Rhythm GI/Abdominal Exam: Normal Bowel Sounds, Soft, Non-Tender, No Organomegaly, No Distention, No Abnormal Bruit, No Mass, Pelvis Stable Extremities: Normal Inspection, Normal Range of Motion, Non-Tender, No Pedal Edema, Normal Capillary Refill Skin: Reports: Warm, Dry, Intact Neurological: Reports: No New Focal Deficit Psy/Mental Status: Reports: Anxious *Q Meaningful Use (DIS) - VTE *Q VTE Criteria *Q: - Stroke *Q Stroke Criteria *Q: - AMI *Q AMI Criteria *Q:
== END 2016-11-12 14:20 | disposition home or self-care (01) | DRG 139 ==
LOC: JP.ICU 16:58
PROVIDERS: ADMIT Internal Medicine; ATTEND Internal Medicine
DX: J18.9 Pneumonia, unspecified organism (principal); F17.210 Nicotine dependence, cigarettes, uncomplicated; I10 Essential (primary) hypertension; M16.0 Bilateral primary osteoarthritis of hip; M54.2 Cervicalgia; M54.9 Dorsalgia, unspecified; G89.29 Other chronic pain; Z87.440 Personal history of urinary (tract) infections; F32.9 Major depressive disorder, single episode, unspecified; F41.9 Anxiety disorder, unspecified; F90.9 Attention-deficit hyperactivity disorder, unspecified type; F81.9 Developmental disorder of scholastic skills, unspecified; Z88.1 Allergy status to other antibiotic agents; Z88.2 Allergy status to sulfonamides
CPT/HCPCS: 36415; 71020; 71020-26; 71250; 71250-26; 80053; 81001; 85025; 87040; 87086; 87493; A9270-GY; J0456; J0696; J1650; J2405; J7050

== ENCOUNTER 2017-07-08 06:27 | Inpatient (IN) | payer BC ==
[2017-07-08] MEDS ORDERED: Scopolamine 1.5 MG Transdermal Patch TRDERM ONE (06:30)
[2017-07-08] MEDS ORDERED: Acetaminophen 500 MG Tab PO ONE (06:30)
[2017-07-08] MEDS ORDERED: Dextrose 5%-Lactated Ringers 1,000 ML IV SCH (07:00)
[2017-07-08] MEDS ORDERED: Naloxone 0.4 MG/ML SDV IVPUSH PRN (07:13)
[2017-07-08] MEDS ORDERED: HYDROmorphone/Normal Saline 15 MG/30 ML PCA IV PRN (07:13)
[2017-07-08] MEDS ORDERED: Naloxone 0.4 MG/ML SDV IV PRN (07:31)
[2017-07-08] MEDS ORDERED: Albuterol/Ipratropium 3.0-0.5 MG/3 ML Neb Soln NEB ONE (08:15)
[2017-07-08] MEDS ORDERED: Clindamycin Phosphate 900 MG in Sodium Chloride 0.9% 100 ML IV ONE (08:45)
[2017-07-08] MEDS ORDERED: Bupivacaine 0.5%/EPINEPHrine 1:200,000 50 ML MDV ONE (08:52)
[2017-07-08] MEDS ORDERED: Meropenem 500 MG SDV ONE (08:56)
[2017-07-08] MEDS ORDERED: Lidocaine 2% 100 MG/5 ML Syringe IVPUSH ONE (09:00)
[2017-07-08] MEDS ORDERED: Ropivacaine 42 ML, Dexamethasone 8 MG, EPINEPHrine 0.4 MG, Sodium Chloride 0.9% 35.6 ML NERVRT SCH ×4 (09:00)
[2017-07-08] MEDS ORDERED: Lidocaine 0.4%/D5W 2 GM/500 ML BAG IV SCH (09:00)
[2017-07-08] MEDS ORDERED: Ketamine 500 MG/5 ML MDV IV SCH (09:00)
[2017-07-08] MEDS ORDERED: Ondansetron 4 MG/2 ML SDV ONE (11:18)
[2017-07-08] MEDS ORDERED: Succinylcholine 200 MG/10 ML MDV ONE (11:18)
[2017-07-08] MEDS ORDERED: Propofol 200 MG/20 ML SDV ONE (11:18)
[2017-07-08] MEDS ORDERED: Glycopyrrolate 0.2 MG/ML 5 ML MDV ONE (11:18)
[2017-07-08] MEDS ORDERED: Dexamethasone 4 MG/ML SDV ONE (11:18)
[2017-07-08] MEDS ORDERED: Rocuronium 50 MG/5 ML Vial ONE (11:18)
[2017-07-08] MEDS ORDERED: Neostigmine Methylsulfate 1 MG/ML 5 ML Syringe ONE (11:18)
[2017-07-08] MEDS ORDERED: fentaNYL 250 MCG/5 ML SDV ONE (11:18)
[2017-07-08] MEDS ORDERED: Lactated Ringers 1,000 ML ONE (11:25)
[2017-07-08] MEDS ORDERED: Linezolid 200 MG/100 ML Bag IRR ONE (12:00)
[2017-07-08] MEDS ORDERED: fentaNYL 100 MCG/2 ML SDV IVPUSH ONE (12:40)
[2017-07-08] MEDS ORDERED: hydrOXYzine HCl 100 MG/2 ML SDV IM ONE (12:45)
[2017-07-08] MEDS ORDERED: hydrOXYzine HCl 25 MG Tab PO PRN (13:48)
[2017-07-08] MEDS ORDERED: Cyclobenzaprine 10 MG Tab PO PRN (13:48)
[2017-07-08] MEDS ORDERED: Ondansetron 4 MG/2 ML SDV IVPUSH PRN (13:49)
[2017-07-08] MEDS: Dextrose 5%-Lactated Ringers 1,000 ML IV SCH (16:38)
[2017-07-08] MEDS: Pregabalin 75 MG Cap PO SCH (20:29)
[2017-07-08] MEDS: Prazosin 1 MG Cap PO SCH (20:30)
[2017-07-08] MEDS ORDERED: QUEtiapine 25 MG Tab PO ONE (21:39)
[2017-07-09] MEDS: Dextrose 5%-Lactated Ringers 1,000 ML IV SCH ×2 (00:26→08:20)
[2017-07-09] MEDS: Acetaminophen/HYDROcodone 325-10 MG Tab PO PRN ×4 (07:44→20:51)
--- NOTE | 2017-07-09 08:35 | PN ---
DATE OF SERVICE: 07/09/2017 SUBJECTIVE: Lis is postop day #1. Her PUBLIC POLICY MEDIATOR and lidocaine were discontinued due to increased sleep time. She did arouse easily. Her pain is controlled. Vital signs have been stable. REVIEW OF SYSTEMS: Remainder of review of systems negative for any pertinent positives and negatives. OBJECTIVE: GENERAL: Lis Woo is a 52-year-old female. She is alert and oriented. VITAL SIGNS: TPR 98.6, 76, 18. Blood pressure 112/53. HEENT: Negative. NECK: Supple. HEART: Regular rate and rhythm. LUNGS: Clear. ABDOMEN: Dressings dry and intact. Abdominal binder is on. EXTREMITIES: Without peripheral edema. ASSESSMENT: Diagnostic lap with lysis of adhesion, repair of incarcerated umbilical hernia and repair of incarcerated epigastric hernia with mesh and placement of Vicryl mesh for incarcerated umbilical and separate epigastric hernias and extensive abdominal adhesions. Date of surgery, 07/08/2017. PLAN: 1. Saline lock IV if oral intake adequate. 2. Continue continuous pulse ox. 3. Good pulmonary toilet. 4. We will evaluate p.r.n. or in a.m. Gisella Recinos PA-C /[id number]
[2017-07-09] MEDS: Lisinopril 10 MG Tab PO SCH (09:39)
[2017-07-09] MEDS: ARIPiprazole 10 MG Tab PO SCH (09:39)
[2017-07-09] MEDS: Estradiol 0.5 MG Tab PO SCH (09:39)
[2017-07-09] MEDS: Pregabalin 75 MG Cap PO SCH ×2 (09:39→20:50)
[2017-07-09] MEDS: Amphetamine/Dextroamphetamine Salts 10 MG Tab PO SCH (09:39)
[2017-07-09] MEDS: Topiramate 25 MG Tab PO SCH (09:42)
[2017-07-09] MEDS: hydrOXYzine HCl 100 MG/2 ML SDV IM PRN ×2 (15:05→20:52)
[2017-07-09] MEDS: Prazosin 1 MG Cap PO SCH (20:46)
[2017-07-10] MEDS: Acetaminophen/HYDROcodone 325-10 MG Tab PO PRN ×2 (01:34→07:23)
[2017-07-10 09:08] VITALS: BP 90/46
[2017-07-10] MEDS: ARIPiprazole 10 MG Tab PO SCH (09:14)
[2017-07-10] MEDS: Amphetamine/Dextroamphetamine Salts 10 MG Tab PO SCH (09:14)
[2017-07-10] MEDS: Pregabalin 75 MG Cap PO SCH (09:14)
[2017-07-10] MEDS: Estradiol 0.5 MG Tab PO SCH (09:15)
[2017-07-10] MEDS: Topiramate 25 MG Tab PO SCH (09:16)
[2017-07-10] MEDS: Lisinopril 10 MG Tab PO SCH (10:02)
--- NOTE | 2017-07-10 18:06 | DISCH ---
FINAL DIAGNOSES: 1. Incarcerated umbilical and separate incarcerated epigastric hernias. 2. Extensive intraabdominal adhesions. SECONDARY DIAGNOSES: 1. Posttraumatic stress disorder. 2. Lumbar spondylosis. OPERATIVE PROCEDURES: This was done on 06/28/2017, diagnostic laparoscopy with lysis of extensive adhesions and; 1. Repair of incarcerated umbilical hernia. 2. Repair of incarcerated epigastric hernia with mesh. 3. Placement of Vicryl mesh to limit recurrent pelvic and abdominal wall adhesion formation. HOSPITAL COURSE: This 52-year-old presented with some painful hernias located in the periumbilical area. At the time of diagnostic laparoscopy, it was noted to have quite a bit in the way of adhesions in the lower abdomen and pelvis as well as 2 separate hernias, one incarcerated umbilical hernia and just above that a separate incarcerated epigastric hernia, both containing some omentum within them. These were reduced and repaired with a mesh technique. To limit recurrent adhesion formation, a 12-inch area of Vicryl mesh was then placed in the depths of the pelvis, along the pelvic sidewall, up against the abdominal wall and including underlying fascia to limit recurrent adhesion formation. Postoperatively, the patient has had no significant problems. She will be discharged home on Tylenol No.3 one to two tabs q.4 hours p.r.n. pain, #40. She is also requesting a sleep aide. We will give her Ambien 5 mg p.o. at bedtime p.r.n. sleep, #20. Follow up with Dr. Torres will be at [facility] on 07/21/2017. The patient should not be involved quite a bit in the way of lifting. The plan will be to have her off work altogether for 6 weeks and then after 6 weeks, returning to work will need to be on light duty with no lifting more than about 12 pounds for an additional 6 weeks.
--- NOTE | 2017-07-12 10:48 | OR ---
DATE OF PROCEDURE: 07/08/2017 PREOPERATIVE DIAGNOSIS: Incarcerated periumbilical hernia. POSTOPERATIVE DIAGNOSES: 1. Separate incarcerated umbilical and incarcerated epigastric hernias. 2. Extensive intraabdominal adhesions. OPERATIVE PROCEDURES: Diagnostic laparoscopy with lysis of adhesions and; 1. Repair of incarcerated umbilical hernia with mesh (78656). 2. Repair of incarcerated epigastric hernia with mesh ([id number]). 3. Placement of Vicryl mesh to displace viscera from pelvic and abdominal wall and mesh placement to limit recurrent adhesion formation (99137). ANESTHESIA: General. REPORTING SPECIALIST: Gisella Recinos PA-C. INDICATION FOR PROCEDURE: This is a 52-year-old female presenting with ongoing abdominal discomfort in the periumbilical area. CT scan showed an area of incarcerated hernia in the periumbilical area. Plan is to proceed with a laparoscopic or if necessary open repair of this with mesh. Potential risks including bleeding, infection, injury to the underlying viscera, problems with the mesh becoming infected or the hernia recurring, problems with chronic pain following the procedure were all reviewed, and the patient wishes to proceed. DETAILS OF PROCEDURE: The patient was taken to the operating room and after general endotracheal anesthesia was induced, a Esteves catheter was inserted. The latter was removed at the end of the procedure. The abdomen was then prepped and draped. In the lateral left mid-abdomen, a transverse incision was made and the peritoneal cavity was entered under direct vision with an Optiview trocar and inflated to 15 mmHg pressure with CO2. Laparoscope was then reinserted. No underlying trocar insertion site injuries were seen. Following this, bilateral transversus abdominis plane blocks were placed with the tip of the needle being visualized in the transversus abdominis plane, and the standard injection placed. This was placed more or less centered in the mid-abdomen in terms of the nerves being blocked. At this point, two 5-mm trocars were placed, one in the left upper quadrant and one in the left lower quadrant. The patient had quite a bit in the way of adhesions present both in the area of the herniation as well as the lower abdomen. These were taken down with Harmonic scalpel and it involved the omentum, some small bowel up against the abdominopelvic viveros. Once these were lysed, the patient was noted to have 2 separate hernias, one an umbilical hernia and one an epigastric hernia, located roughly 3 fingerbreadths above the umbilicus. Both of these contained incarcerated omentum which was sequentially dissected free and reduced with a combination of Harmonic scalpel dissection as well as external pressure. Once these were reduced, then a Ventralight ST mesh with the balloon positioning system was selected. This was a 15.2 cm round mesh. This was soaked in antibiotic- containing saline solution and placed in intraabdominal location. A small stab wound just below the umbilicus was then made, and the inflation catheter pulled up through the abdominal wall, thus putting the mesh up against the abdominal wall as well. Balloon was inflated, bringing the mesh up against the abdominal wall. The mesh was then fixed circumferentially with 2 rows of absorbable tacking screws. Once these were in place, the balloon was deflated and removed, and there appeared to be good fixation of the mesh and good coverage over both areas of herniation. To limit recurrent adhesion formation, which could be quite problematic in this case, Vicryl mesh was then placed. This was a 12-inch square mesh being placed underneath the new Ventralight mesh and then from there into the pelvic and abdominal wall to displace viscera from those areas. At that point, no further problems were noted. Trocars were removed. The fascia at the 12-mm site was closed with 0 Vicryl stitch and skin with 4-0 Vicryl skin stitch. The dressing was applied. The patient was taken to the recovery room in a satisfactory condition. Physician administrative office assistant, Gisella Recinos, played an essential role in assisting in this case, helping to position the patient, retract structures as needed, as well as suturing and cutting sutures when indicated. Her presence improved patient safety and decreased the operative time. Jason Torres MD /[id number]
== END 2017-07-10 10:45 | disposition home or self-care (01) | DRG 227 ==
LOC: JP.MS 06:27 → JP.SDS 06:27 → EDSTATUS 10:15 → JP.2SS 12:30 → UNDODISIN 07-10 10:45
PROVIDERS: ADMIT Surgery; ATTEND Surgery
PROC: 0WUF4JZ Supplement Abdominal Wall with Synthetic Substitute, Percutaneous Endoscopic Approach (ICD-10-PCS; principal; 2017-07-08)
PROC: 3E0M45Z Introduction of Adhesion Barrier into Peritoneal Cavity, Percutaneous Endoscopic Approach (ICD-10-PCS; 2017-07-08)
PROC: 0WUF4JZ Supplement Abdominal Wall with Synthetic Substitute, Percutaneous Endoscopic Approach (ICD-10-PCS; 2017-07-08)
PROC: 3E0T3BZ Introduction of Anesthetic Agent into Peripheral Nerves and Plexi, Percutaneous Approach (ICD-10-PCS; 2017-07-08)
PROC: 0DNU4ZZ Release Omentum, Percutaneous Endoscopic Approach (ICD-10-PCS; 2017-07-08)
PROC: 0DN84ZZ Release Small Intestine, Percutaneous Endoscopic Approach (ICD-10-PCS; 2017-07-08)
PROC: 0DNW4ZZ Release Peritoneum, Percutaneous Endoscopic Approach (ICD-10-PCS; 2017-07-08)
DX: K42.0 Umbilical hernia with obstruction, without gangrene (principal); K43.6 Other and unspecified ventral hernia with obstruction, without gangrene; K66.0 Peritoneal adhesions (postprocedural) (postinfection); I10 Essential (primary) hypertension; M47.896 Other spondylosis, lumbar region; M54.9 Dorsalgia, unspecified; G89.29 Other chronic pain; F41.9 Anxiety disorder, unspecified; F32.9 Major depressive disorder, single episode, unspecified; F43.10 Post-traumatic stress disorder, unspecified; F41.0 Panic disorder [episodic paroxysmal anxiety]; Z79.891 Long term (current) use of opiate analgesic; Z88.0 Allergy status to penicillin; Z88.2 Allergy status to sulfonamides
CPT/HCPCS: 94762; A9270-GY; C1781; J0171; J0330; J1100; J1170; J2001; J2020; J2185; J2405; J2704; J2710; J2795; J3010; J3410; J7030; J7042; J7050; J7120; J7620; S0077

== ENCOUNTER 2017-07-17 09:29 | Observation (INO) | payer BC ==
[2017-07-17] MEDS ORDERED: Ondansetron 4 MG/2 ML SDV IVPUSH ONE (09:40)
[2017-07-17] MEDS ORDERED: Sodium Chloride 0.9% 1,000 ML IV SCH ×3 (09:45→16:00)
[2017-07-17] MEDS ORDERED: HYDROmorphone 0.5 MG/0.5 ML Syringe IVPUSH ONE (10:18)
[2017-07-17] MEDS ORDERED: Iopamidol 612 MG/ML 150 ML Bottle IV SCH (10:45)
[2017-07-17] MEDS ORDERED: Sodium Chloride 0.9% 100 ML IV SCH (10:45)
--- NOTE | 2017-07-17 12:05 | EDM.PDOC ---
ED HPI GENERAL MEDICAL PROBLEM - General Chief Complaint: Abdominal Pain Stated Complaint: ABD PAIN Time Seen by Provider: 07/17/17 10:30 Source of Information: Reports: Patient, Family History Limitations: Reports: No Limitations - History of Present Illness INITIAL COMMENTS - FREE TEXT/NARRATIVE: pt arrived with a history of very severe abdomanal pain which started last nite. She was very uncomfortable during the nite. She is nauseated and is not passing much gas. Onset: Other (last nite. ) Duration: Hour(s): Location: Reports: Abdomen, Other ( abdoman seemes more distended. ) Associated Symptoms: Reports: Nausea/Vomiting Abdomen Pain Score (Numeric/FACES): 7 - Related Data Allergies Allergy/AdvReac Type Severity Reaction Status Date / Time Penicillins Allergy Mild Hives Verified 07/17/17 09:35 levofloxacin [From Levaquin] Allergy Difficulty Verified 07/17/17 13:32 Breathing Sulfa (Sulfonamide Allergy hives Verified 07/17/17 09:35 Antibiotics) itching Home Meds: Home Meds Estradiol [Estrace] 1 mg PO DAILY 02/02/13 [History] Amphetamine/Dextroamphetamine [Adderall] 30 mg PO DAILY tablet 11/12/16 [Rx] oxyCODONE 5 mg PO Q4H PRN #0 tablet 11/12/16 [Rx] ARIPiprazole [Abilify] 15 mg PO DAILY 06/16/17 [History] Hydrocodone/Acetaminophen [Jennings 10-325 Tablet] 1 - 2 tab PO Q4H PRN 06/16/17 [ History] Lidocaine 5% [Lidoderm 5%] 1 patch TOP Q12H PRN 06/16/17 [History] Topiramate [Topamax] 50 mg PO DAILY 06/16/17 [History] QUEtiapine [SEROquel] 25 - 50 mg PO BEDTIME PRN 06/30/17 [History] Diclofenac Sodium [Pennsaid] 0 cm TP Q6HR 07/07/17 [History] Pregabalin [Lyrica] 75 mg PO BID 07/08/17 [History] Zolpidem Tartrate [Ambien] 5 mg PO BEDTIME PRN #20 tablet 07/10/17 [Rx] Ciprofloxacin HCl [Cipro] 500 mg PO BID 07/20/17 [History] Past Medical History - Past Health History Medical/Surgical History: Denies Medical/Surgical History HEENT History: Reports: Cataract, Sinusitis Cardiovascular History: Reports: High Cholesterol, Hypertension Respiratory History: Reports: Pneumonia, Recurrent Gastrointestinal History: Reports: None Genitourinary History: Reports: Pyelonephritis, UTI, Recurrent 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: , Prolapsed Uterus, Spontaneous Musculoskeletal History: Reports: Back Pain, Chronic, Other (See Below) Other Musculoskeletal History: epicondilitis Neurological History: Reports: Concussion Psychiatric History: Reports: ADHD, Anxiety, Depression, Learning Disability, Mood Swings, Panic Attack, PTSD Dermatologic History: Reports: Other (See Below) Other Dermatologic History: excessive dryness - Infectious Disease History Infectious Disease History: Reports: Chicken Pox - Past Surgical History Head Surgeries/Procedures: Reports: None HEENT Surgical History: Reports: Cataract Surgery, Other (See Below) Cardiovascular Surgical History: Reports: None Respiratory Surgical History: Reports: None GI Surgical History: Reports: Appendectomy, Colonoscopy, EGD, Hernia, Abdominal , Other (See Below) Female Surgical History: Reports: Cervical Cryotherapy, Hysterectomy Neurological Surgical History: Reports: None Musculoskeletal Surgical History: Reports: Carpal Tunnel, Other (See Below) Other Musculoskeletal Surgeries/Procedures:: right elbow surgery Dermatological Surgical History: Reports: None Social & Family History - Family History Family Medical History: Noncontributory - Tobacco Use Smoking Status *Q: Current Every Day Smoker Years of Tobacco use: 45 Packs/Tins Daily: 1 Used Tobacco, but Quit: No Month/Year Tobacco Last Used: OCT Second Hand Smoke Exposure: Yes - Caffeine Use Caffeine Use: Reports: Soda - Alcohol Use Days Per Week of Alcohol Use: 0 - Recreational Drug Use Recreational Drug Use: No ED ROS GENERAL - Review of Systems Review Of Systems: See Below Constitutional: Reports: No Symptoms HEENT: Reports: No Symptoms Respiratory: Reports: No Symptoms Cardiovascular: Reports: No Symptoms Endocrine: Reports: No Symptoms GI/Abdominal: Reports: Abdominal Pain, Other (pt feels she is more distended and she is not passing much gas. She had a hernia repair done 9 days ago and was doing well. She developed severe abdomanal pain during the nite. ) : Reports: No Symptoms Musculoskeletal: Reports: No Symptoms Skin: Reports: No Symptoms Neurological: Reports: No Symptoms ED EXAM, GI/ABD - Physical Exam Exam: See Below Text/Narrative:: Pt arrived with sevre abdomanal pain. She is 9 days post-op hernia repair. She developed marked abdomanal pain last nite. She has been very nauseated and is not passing much gas. Exam Limited By: No Limitations General Appearance: Alert, Anxious Eyes: Bilateral: Normal Appearance, EOMI Ears: Normal TMs Nose: Normal Inspection Throat/Mouth: Normal Inspection Head: Atraumatic Neck: Normal Inspection Respiratory/Chest: No Respiratory Distress Cardiovascular: Regular Rate, Rhythm GI/Abdominal Exam: Distended, Tender, Other ( wounds look good. ) (Female) Exam: Deferred Rectal (Female) Exam: Deferred Back Exam: Normal Inspection Extremities: Normal Inspection Neurological: Alert, Oriented, Normal Cognition Psychiatric: Normal Affect Course - Vital Signs Last Recorded V/S: Last Vital Signs Temp 36.7 C 07/19/17 07:00 Pulse 61 07/19/17 07:00 Resp 16 07/19/17 07:00 BP 99/62 07/19/17 07:00 Pulse Ox 96 07/19/17 07:00 - Orders/Labs/Meds Labs: Laboratory Tests 07/17/17 07/17/17 07/17/17 Range/Units 09:38 09:38 10:15 WBC 11.0 (4.5-11.0) K/uL RBC 4.31 (3.30-5.50) M/uL Hgb 14.2 D (12.0-15.0) g/dL Hct 41.6 (36.0-48.0) % MCV 97 (80-98) fL MCH 33 H (27-31) pg MCHC 34 (32-36) % Plt Count 490 H (150-400) K/uL Neut % (Auto) 69 H (36-66) % Lymph % (Auto) 21 L (24-44) % Eddy % (Auto) 8 H (2-6) % Eos % (Auto) 2 (2-4) % Baso % (Auto) 0 (0-1) % Sodium 137 L (140-148) mmol/L Potassium 3.9 (3.6-5.2) mmol/L Chloride 103 (100-108) mmol/L Carbon Dioxide 28 (21-32) mmol/L Anion Gap 9.9 (5.0-14.0) mmol/L BUN 12 D (7-18) mg/dL Creatinine 0.7 (0.6-1.0) mg/dL Est Cr Clr Drug Dosing 86.01 mL/min Estimated GFR (MDRD) > 60 (>60) Glucose 115 H (74-106) mg/dL Calcium 9.0 (8.5-10.1) mg/dL Total Bilirubin 0.2 (0.2-1.0) mg/dL AST 18 D (15-37) U/L ALT 23 D (12-78) U/L Alkaline Phosphatase 100 (46-116) U/L Total Protein 7.4 (6.4-8.2) g/dL Albumin 3.4 (3.4-5.0) g/dL Globulin 4.0 H (2.3-3.5) g/dL Albumin/Globulin Ratio 0.9 L (1.2-2.2) Urine Color Yellow Urine Appearance Cloudy Urine pH 6.0 (4.5-8.0) Ur Specific [place] 1.020 (1.008-1.030) Urine Protein 100 H (NEGATIVE) mg/dL Urine Glucose (UA) Normal (NEGATIVE) mg/dL Urine Ketones Negative (NEGATIVE) mg/dL Urine Occult Blood Large (NEGATIVE) Urine Nitrite Positive H (NEGATIVE) Urine Bilirubin Negative (NEGATIVE) Urine Urobilinogen Normal (NORMAL) mg/dL Ur Leukocyte Esterase Large (NEGATIVE) Urine RBC 20-30 H (0-5) Urine WBC Packed H (0-5) Ur Epithelial Cells Few Amorphous Sediment Not seen Urine Bacteria Many Urine Mucus Not seen Meds: Medications Discontinued Medications Generic Name Dose Route Start Last Admin Trade Name Freq PRN Reason Stop Dose Admin Acetaminophen 650 mg 07/17/17 15:53 Tylenol PO Q6H PRN Pain (mild 1-3) Acetaminophen 650 mg 07/17/17 16:12 Tylenol PO Q6H PRN Pain (mild 1-3) Amphetamine/Dextroamphetamine 30 mg 07/18/17 09:00 07/19/17 09:34 Adderall PO 30 mg DAILY YANA Administration Aripiprazole 5 mg 07/18/17 09:00 07/18/17 09:00 Abilify PO 5 mg DAILY YANA Administration Aripiprazole 15 mg 07/19/17 09:00 07/19/17 09:35 Abilify PO 15 mg DAILY YANA Administration Aripiprazole 10 mg 07/18/17 10:00 07/18/17 11:54 Abilify PO 07/18/17 10:01 10 mg ONETIME ONE Administration Benzocaine/Menthol 1 lozenge 07/17/17 15:53 Cepacol Sore Throat MUCMEM Q1H PRN Sore Throat Benzocaine/Menthol 1 lozenge 07/17/17 16:12 Cepacol Sore Throat MUCMEM Q1H PRN Sore Throat Bisacodyl 5 mg 07/17/17 15:53 Dulcolax PO DAILY PRN Constipation Bisacodyl 5 mg 07/17/17 16:12 07/19/17 07:31 Dulcolax PO 5 mg DAILY PRN Administration Constipation Bisacodyl 10 mg 07/19/17 07:58 07/19/17 09:43 Dulcolax RECTAL 10 mg DAILY PRN Administration Constipation Bupivacaine HCl/Epinephrine Bitart Confirm 07/17/17 15:03 07/17/17 15:28 Marcaine 0.5%/Epinephrine 1:200,000 Administered 07/17/17 15:04 40 ml Dose Administration 50 ml .ROUTE .STK-MED ONE Cephalexin 500 mg 07/18/17 10:00 07/19/17 09:35 Keflex PO 500 mg Q12H YANA Administration Dexamethasone Confirm 07/17/17 13:07 Dexamethasone Administered 07/17/17 13:08 Dose 4 mg .ROUTE .STK-MED ONE Diphenhydramine HCl 25 mg 07/17/17 13:21 07/17/17 13:30 Benadryl IVPUSH 07/17/17 13:22 25 mg ONETIME ONE Administration Diphenhydramine HCl 25 mg 07/17/17 13:22 07/17/17 13:30 Benadryl PO 07/17/17 13:23 25 mg ONETIME ONE Administration Diphenhydramine HCl 50 mg 07/17/17 15:53 Benadryl IVPUSH Q4H PRN Itching Diphenhydramine HCl 50 mg 07/17/17 16:12 Benadryl IVPUSH Q4H PRN Itching Docusate Sodium 100 mg 07/17/17 15:53 Colace PO BID PRN Constipation Docusate Sodium 100 mg 07/17/17 16:12 07/19/17 07:31 Colace PO 100 mg BID PRN Administration Constipation Enoxaparin Sodium 40 mg 07/18/17 09:00 Lovenox SUBCUT DAILY YANA Enoxaparin Sodium 40 mg 07/18/17 09:00 07/19/17 09:36 Lovenox SUBCUT 40 mg DAILY YANA Administration Estradiol 1 mg 07/18/17 09:00 07/19/17 09:34 Estradiol PO 1 mg DAILY YANA Administration Fentanyl Confirm 07/17/17 13:06 Sublimaze Administered 07/17/17 13:07 Dose 250 mcg .ROUTE .STK-MED ONE Fentanyl Confirm 07/17/17 15:12 Sublimaze Administered 07/17/17 15:13 Dose 250 mcg .ROUTE .STK-MED ONE Fentanyl 10 - 30 mcg 07/17/17 15:59 Sublimaze IVPUSH Q1H PRN Pain (severe 7-10) Fentanyl 10 - 30 mcg 07/17/17 16:12 07/17/17 17:46 Sublimaze IVPUSH 30 mcg Q1H PRN Administration Pain (severe 7-10) Glycopyrrolate Confirm 07/17/17 13:07 Robinul Administered 07/17/17 13:08 Dose 1 mg .ROUTE .STK-MED ONE Hydromorphone HCl 0.5 mg 07/17/17 10:18 07/17/17 10:34 Dilaudid IVPUSH 07/17/17 10:19 0.5 mg ONETIME ONE Administration Hydroxyzine HCl 50 mg 07/17/17 15:53 Vistaril IM Q4H PRN Nausea Hydroxyzine HCl 50 mg 07/17/17 16:12 07/18/17 05:08 Vistaril IM 50 mg Q4H PRN Administration Nausea Sodium Chloride 1,000 mls @ 999 mls/hr 07/17/17 09:45 07/17/17 10:08 Normal Saline IV 999 mls/hr ASDIRECTED YANA Administration Sodium Chloride 1,000 mls @ 999 mls/hr 07/17/17 10:30 07/17/17 11:17 Normal Saline IV 999 mls/hr ASDIRECTED YANA Administration Sodium Chloride 100 mls @ 3 mls/sec 07/17/17 10:45 07/17/17 10:54 Normal Saline IV 3 mls/sec ASDIRECTED YANA Administration Levofloxacin/Dextrose 500 mg/ 100 mls @ 100 mls/hr 07/17/17 12:12 07/17/17 13 :07 Premix IV 07/17/17 13:11 100 mls/hr ONETIME ONE Administration Lactated Ringer's Confirm 07/17/17 15:28 Ringers, Lactated Administered 07/17/17 15:29 Dose 1,000 mls @ as directed .ROUTE .STK-MED ONE Sodium Chloride 1,000 mls @ 125 mls/hr 07/17/17 16:00 Normal Saline IV ASDIRECTED YANA Sodium Chloride 1,000 mls @ 125 mls/hr 07/17/17 16:00 07/18/17 21:24 Normal Saline IV 125 mls/hr ASDIRECTED YANA Administration Iopamidol 150 ml 07/17/17 10:45 07/17/17 10:54 Isovue-300 (61%) IV 125 ml . DIRECTED YANA Administration Ketorolac Tromethamine Confirm 07/17/17 15:29 Toradol Administered 07/17/17 15:30 Dose 60 mg .ROUTE .STK-MED ONE Ketorolac Tromethamine 30 mg 07/17/17 16:00 Toradol IM 07/18/17 10:01 Q6H YANA Ketorolac Tromethamine 30 mg 07/17/17 22:00 07/18/17 11:54 Toradol IM 07/18/17 10:01 30 mg Q6H YANA Administration Lactulose 10 gm 07/19/17 09:00 07/19/17 09:34 Chronulac PO 10 gm DAILY YANA Administration Metoclopramide HCl 10 mg 07/17/17 15:53 Reglan IV Q6H PRN Nausea Metoclopramide HCl 10 mg 07/17/17 16:12 Reglan IV Q6H PRN Nausea Midazolam HCl Confirm 07/17/17 14:25 Versed 1 Mg/Ml Administered 07/17/17 14:26 Dose 2 mg .ROUTE .STK-MED ONE Neostigmine Methylsulfate Confirm 07/17/17 13:07 Neostigmine Administered 07/17/17 13:08 Dose 5 mg .ROUTE .STK-MED ONE Ondansetron HCl 4 mg 07/17/17 09:40 07/17/17 10:08 Zofran IVPUSH 07/17/17 09:41 4 mg ONETIME ONE Administration Ondansetron HCl Confirm 07/17/17 13:07 Zofran Administered 07/17/17 13:08 Dose 4 mg .ROUTE .STK-MED ONE Oxycodone/Acetaminophen 2 tab 07/17/17 15:53 Percocet 325-10 Mg PO Q4H PRN Pain (moderate 4-6) Oxycodone/Acetaminophen 2 tab 07/17/17 16:12 07/19/17 07:31 Percocet 325-10 Mg PO 2 tab Q4H PRN Administration Pain (moderate 4-6) Pregabalin 75 mg 07/18/17 09:00 07/19/17 09:43 Lyrica PO 75 mg BID YANA Administration Promethazine HCl 25 mg 07/17/17 15:53 Phenergan IM Q6H PRN Nausea Promethazine HCl 25 mg 07/17/17 16:12 Phenergan IM Q6H PRN Nausea Propofol Confirm 07/17/17 13:07 Diprivan 20 Ml Administered 07/17/17 13:08 Dose 200 mg .ROUTE .STK-MED ONE Quetiapine Fumarate 25 - 50 mg 07/18/17 07:30 07/18/17 21:54 Seroquel PO 50 mg BEDTIME PRN Administration * Rocuronium [place] Confirm 07/17/17 13:07 Zemuron Administered 07/17/17 13:08 Dose 50 mg .ROUTE .STK-MED ONE Sodium Biphosphate/Sodium Phosphate 133 ml 07/19/17 08:15 07/19/17 11:03 Fleet Enema RECTAL 07/19/17 08:16 Not Given ONETIME ONE Succinylcholine Chloride Confirm 07/17/17 13:07 Quelicin Administered 07/17/17 13:08 Dose 200 mg .ROUTE .STK-MED ONE Topiramate 50 mg 07/18/17 09:00 07/19/17 09:36 Topamax PO 50 mg DAILY YANA Administration Zolpidem Tartrate 5 mg 07/17/17 15:53 Ambien PO BEDTIME PRN Insomnia Zolpidem Tartrate 5 mg 07/17/17 16:12 07/17/17 22:01 Ambien PO 5 mg BEDTIME PRN Administration Insomnia - Re-Assessments/Exams Free Text/Narrative Re-Assessment/Exam: 07/17/17 12:09 pt had a elevated wbc. Her urine is infected. She had a cat scan of the abdoman which showed a partial small bowel obstruction. Departure - Departure Time of Disposition: 12:10 Disposition: Admitted As Inpatient 64 Condition: Fair Clinical Impression: Small bowel obstruction, H/O hernia repair, Dehydration - Discharge Information
[2017-07-17] MEDS ORDERED: Levofloxacin/Dextrose 5%-Water 500 MG in Premix Bag 1 BAG IV ONE (12:12)
[2017-07-17] MEDS ORDERED: fentaNYL 250 MCG/5 ML SDV ONE ×2 (13:06→15:12)
[2017-07-17] MEDS ORDERED: Propofol 200 MG/20 ML SDV ONE (13:07)
[2017-07-17] MEDS ORDERED: Neostigmine Methylsulfate 1 MG/ML 5 ML Syringe ONE (13:07)
[2017-07-17] MEDS ORDERED: Ondansetron 4 MG/2 ML SDV ONE (13:07)
[2017-07-17] MEDS ORDERED: Dexamethasone 4 MG/ML SDV ONE (13:07)
[2017-07-17] MEDS ORDERED: Succinylcholine 200 MG/10 ML MDV ONE (13:07)
[2017-07-17] MEDS ORDERED: Glycopyrrolate 0.2 MG/ML 5 ML MDV ONE (13:07)
[2017-07-17] MEDS ORDERED: Rocuronium 50 MG/5 ML Vial ONE (13:07)
[2017-07-17] MEDS ORDERED: diphenhydrAMINE 50 MG/ML SDV IVPUSH ONE (13:21)
[2017-07-17] MEDS ORDERED: diphenhydrAMINE 25 MG Cap PO ONE (13:22)
[2017-07-17] MEDS ORDERED: Midazolam 1 MG/ML 2 ML SDV ONE (14:25)
[2017-07-17] MEDS ORDERED: Bupivacaine 0.5%/EPINEPHrine 1:200,000 50 ML MDV ONE (15:03)
[2017-07-17] MEDS ORDERED: Lactated Ringers 1,000 ML ONE (15:28)
[2017-07-17] MEDS ORDERED: Ketorolac 60 MG/2 ML SDV ONE (15:29)
[2017-07-17] MEDS ORDERED: Zolpidem 5 MG Tab PO PRN ×2 (15:53→16:12)
[2017-07-17] MEDS ORDERED: Bisacodyl 5 MG Tab PO PRN (15:53)
[2017-07-17] MEDS ORDERED: Docusate Sodium 100 MG Cap PO PRN (15:53)
[2017-07-17] MEDS ORDERED: hydrOXYzine HCl 100 MG/2 ML SDV IM PRN ×2 (15:53→16:12)
[2017-07-17] MEDS ORDERED: Metoclopramide 10 MG/2 ML SDV IV PRN ×2 (15:53→16:12)
[2017-07-17] MEDS ORDERED: Benzocaine/Cetylpyridinium/Menthol Lozenge MUCMEM PRN ×2 (15:53→16:12)
[2017-07-17] MEDS ORDERED: Acetaminophen 325 MG Tab PO PRN ×2 (15:53→16:12)
[2017-07-17] MEDS ORDERED: Acetaminophen/oxyCODONE 325-10 MG Tab PO PRN (15:53)
[2017-07-17] MEDS ORDERED: diphenhydrAMINE 50 MG/ML SDV IVPUSH PRN ×2 (15:53→16:12)
[2017-07-17] MEDS ORDERED: Promethazine 25 MG/ML SDV IM PRN ×2 (15:53→16:12)
[2017-07-17] MEDS ORDERED: fentaNYL 100 MCG/2 ML SDV IVPUSH PRN (15:59)
[2017-07-17] MEDS ORDERED: Ketorolac 30 MG/ML SDV IM SCH (16:00)
[2017-07-17] MEDS: fentaNYL 100 MCG/2 ML SDV IVPUSH PRN ×2 (16:42→17:46)
[2017-07-17] MEDS: Sodium Chloride 0.9% 1,000 ML IV SCH (16:46)
[2017-07-17] MEDS: Acetaminophen/oxyCODONE 325-10 MG Tab PO PRN ×2 (17:47→22:01)
[2017-07-17] MEDS: Ketorolac 30 MG/ML SDV IM SCH (22:00)
[2017-07-18] MEDS: Sodium Chloride 0.9% 1,000 ML IV SCH ×3 (00:48→21:24)
[2017-07-18] MEDS: Acetaminophen/oxyCODONE 325-10 MG Tab PO PRN ×5 (02:17→23:40)
[2017-07-18] MEDS: Ketorolac 30 MG/ML SDV IM SCH ×2 (05:09→11:54)
--- NOTE | 2017-07-18 07:03 | CONS ---
DATE OF SERVICE: 07/17/2017 REFERRING PHYSICIAN: CONSULTING PHYSICIAN: Harvey Dave MD REASON FOR CONSULTATION: Abdominal pain. HISTORY OF PRESENT ILLNESS: This is a pleasant 52-year-old female who presented to the emergency room with abdominal pain. This pain is constant, 8/10 to 9/10. It is made worse by eating or positioning. The patient's last bowel movement or flatus was greater than five days ago per her report. The patient did undergo a diagnostic laparoscopy with lysis of adhesions, and repair of umbilical and epigastric hernia with Vicryl mesh placement on 07/08/2017. PAST MEDICAL HISTORY: Hypertension, lumbar back pain, panic attack, PTSD. SOCIAL HISTORY: The patient does smoke. REVIEW OF SYSTEMS: GENERAL: The patient's only complaint is abdominal pain. This pain is diffuse and not limited to specific quadrant, more centralized in the mid abdomen/slightly to the left lower quadrant. HEENT: No changes. CARDIOVASCULAR: No history of myocardial infarction. GASTROINTESTINAL: As above. GENITOURINARY: No dysuria. NEUROLOGICAL: No symptoms. PSYCHIATRIC: No symptoms. The remainder of review of systems is reviewed and is negative. PHYSICAL EXAMINATION: VITAL SIGNS: Temperature 97.7, blood pressure 120/57, pulse 76, respirations 14, 100% on room air. HEENT: Pupils are equal. NECK: Supple. LUNGS: Clear. CARDIOVASCULAR: Regular rate. ABDOMEN: Distended. Pain with palpation. Mild guarding, mild rebound. EXTREMITIES: Full range of motion. NEUROLOGIC: Oriented x3. PSYCHIATRIC: No gross depression. SKIN: Shows healing laparoscopic incision sites. IMAGING DATA: I did review the CT scan which does suggest a mild obstruction. ASSESSMENT/PLAN: The patient was taken to the operating room for diagnostic laparoscopy. She has not had a bowel movement for five days, although, ileus could be a possibility. The CT scan is interpreted as bowel obstruction. Therefore, we will place a scope in and address the underlying problem. We also discussed possibility of open surgery, small bowel resection, fistula formation, enterotomy, and other risks not listed here. The patient understands these risks and wishes to proceed. Harvey Dave MD /[id number]
[2017-07-18] MEDS ORDERED: QUEtiapine 25 MG Tab PO PRN (07:30)
[2017-07-18] MEDS: Topiramate 25 MG Tab PO SCH (09:00)
[2017-07-18] MEDS ORDERED: ARIPiprazole 10 MG Tab PO SCH (09:00)
[2017-07-18] MEDS: Enoxaparin 40 MG/0.4 ML Syringe SUBCUT SCH (09:00)
[2017-07-18] MEDS ORDERED: Enoxaparin 40 MG/0.4 ML Syringe SUBCUT SCH (09:00)
[2017-07-18] MEDS: Estradiol 0.5 MG Tab PO SCH (09:00)
[2017-07-18] MEDS: Pregabalin 75 MG Cap PO SCH ×2 (09:06→21:54)
[2017-07-18] MEDS: Amphetamine/Dextroamphetamine Salts 10 MG Tab PO SCH (09:07)
[2017-07-18] MEDS ORDERED: ARIPiprazole 10 MG Tab PO ONE (10:00)
[2017-07-18] MEDS: Cephalexin 250 MG Cap PO SCH ×2 (11:54→21:54)
[2017-07-18] MEDS: Docusate Sodium 100 MG Cap PO PRN ×2 (12:09→21:54)
[2017-07-19] MEDS: Acetaminophen/oxyCODONE 325-10 MG Tab PO PRN ×2 (03:46→07:31)
[2017-07-19] MEDS: Bisacodyl 5 MG Tab PO PRN ×2 (03:49→07:31)
[2017-07-19] MEDS: Docusate Sodium 100 MG Cap PO PRN (07:31)
[2017-07-19 07:35] VITALS: BP 99/62
[2017-07-19] MEDS ORDERED: Bisacodyl 10 MG Supp RECTAL PRN (07:58)
[2017-07-19] MEDS ORDERED: Sodium Phosphate,Monobasic/Sodium Phosphate,Dibasic Enema 133 ML Bottle RECTAL ONE (08:15)
[2017-07-19] MEDS ORDERED: Lactulose Soln 10 GM/15 ML 15 ML UD Cup PO SCH (09:00)
[2017-07-19] MEDS ORDERED: ARIPiprazole 10 MG Tab PO SCH (09:00)
[2017-07-19] MEDS: Amphetamine/Dextroamphetamine Salts 10 MG Tab PO SCH (09:34)
[2017-07-19] MEDS: Estradiol 0.5 MG Tab PO SCH (09:34)
[2017-07-19] MEDS: Cephalexin 250 MG Cap PO SCH (09:35)
[2017-07-19] MEDS: Topiramate 25 MG Tab PO SCH (09:36)
[2017-07-19] MEDS: Enoxaparin 40 MG/0.4 ML Syringe SUBCUT SCH (09:36)
[2017-07-19] MEDS: Pregabalin 75 MG Cap PO SCH (09:43)
--- NOTE | 2017-07-19 09:49 | CR ---
Abdomen Series w Chest 1V HISTORY: pain FINDINGS: Lungs appear clear and normally aerated. Cardiomediastinal silhouette is within normal limits. No vas cular redistribution or pleural fluid can be seen. There are several mildly dilated small bowel loops with air-fluid levels. No dilated colon loops are seen. No free air is identified. No soft tissue mass, organomegaly, or abnormal calcifications are se en. Bony structures are unremarkable. IMPRESSION: 1. No acute chest abnormality identified. 2. Mildly dilated small bowel loops with air-fluid levels. Recommend clinical course for possible par tial small bowel obstruction.
--- NOTE | 2017-07-19 09:58 | OR ---
DATE OF PROCEDURE: 07/17/2017 PROCEDURES: 1. Exploratory laparoscopy after recent laparoscopic repair (12498). 2. Drainage of peritonitis approximately 200 mL, mostly limited to right upper abdomen, cultured ([id number]). 3. Lysis of adhesions. FINDINGS: 1. Vicryl mesh contained/sutured into the left lower quadrant port causing kinking of the bowel leading to bowel obstruction (no bowel resected). 2. Adhesions, mid abdomen, adhesed using a #15 blade. 3. Approximately 200 mL to 300 mL of a tannish type fluid in the right upper quadrant and diffuse to the abdomen (cultured, thoroughly irrigated, suction, and removed). COMPLICATIONS: None. DRUG WORKER: None. ANESTHESIA: General. INDICATIONS: This is a 52-year-old female, who recently underwent a ventral hernia repair by another physician. The patient did well postoperatively, but presents to the emergency room with no bowel movements or flatus for approximately 5 days. She underwent a CT scan, the report indicates a bowel obstruction. RISKS: Risks, benefits, alternatives, and limitations including, but not limited to infection, bleeding, and perforation were explained to the patient along with requirement for small bowel resection, open surgery, and other risks not listed here. I also discussed the standard cardiovascular issues related to surgery in general. PROCEDURE IN DETAIL: The patient was placed in supine position, due to the risk of enterotomy, a new incision was made 3 cm inferior to the previous incision site noted on the left abdomen. The Veress needle was used to enter the abdomen without abnormality and a drop test was performed without abnormality. The abdomen was subsequently insufflated. An Optiview trocar was inserted. No evidence of enterotomy or injury was noted. However, it was noted that the enterotomy would have been created the original port, had been used as there was a piece of ileum lightly adhered to this from the previous surgery. Two additional 5 mm ports were entered under direct visualization. The mesh was then noted to be adhered to the Vicryl mesh, which was then adhered to the small bowel. A plane was then created between the two mesh layers. During this process, it was noted that a piece of the Vicryl mesh was being sutured into the left lower quadrant port. Multiple images were taken of this. It is of note that this was causing an obtuse angle on the small bowel, probably leading to the bowel obstruction seen on CT scan. This was transected. In addition, the patient had approximately 200 mL to 300 mL of blood/tannish colored fluid throughout the abdomen. This was cultured, thoroughly irrigated, and suctioned/removed. In addition, the patient had an adhesed piece of ileum in the mid abdomen and this was mobilized using a curved Metzenbaum scissors. Of note, no energy source was used. Once this was completed, the small bowel was ran in its entirety. A transition point was identified related to the aforementioned problem. Photo was taken. No other areas of bowel obstruction were noted. There was no ischemic bowel. The abdomen was thoroughly irrigated. The wounds were irrigated and closed with 3-0 Vicryl and 4-0 Vicryl. No drains were placed. The patient tolerated the procedure well. Harvey Dave MD /[id number]
--- NOTE | 2017-07-19 20:10 | DISCH ---
DISCHARGE DIAGNOSIS: Status post repair of bowel obstruction. SUMMARY OF HOSPITAL COURSE: A pleasant 52-year-old female, who was operated by another surgeon and postoperatively developed a bowel obstruction. The patient was taken to the operating room, and the bowel obstruction was identified. Prior to discharge, her pain was well controlled. She had no nausea, vomiting, shortness of breath, or chest pain. She was having regular bowel movements. DISCHARGE FOLLOWUP: Follow up with Surgery in 7 to 14 days. DISCHARGE MEDICATIONS: Same as admission, and the patient is to continue her pain medications from the previous surgery with respect to pain management. ACTIVITY: No lifting greater than 30 pounds x30 days. CONSULTATIONS: Additional consultations during this hospitalization, none.
--- NOTE | 2017-07-19 20:10 | PN ---
DATE OF SERVICE: 07/19/2017 SUBJECTIVE: The patient is doing very well today. Pain is well controlled. No nausea, shortness of breath, or chest pain. Not having a bowel movement yet. OBJECTIVE: VITAL SIGNS: Stable. CARDIOVASCULAR: Regular rhythm and rate. RESPIRATORY: Lungs clear to consultation bilaterally. ABDOMEN: Bowel sounds positive. Incision is healing well. ASSESSMENT: Status post repair of obstruction. PLAN: The patient feels she did not have a bowel movement. We will generally assist her with stool softeners, etc. Once she can have a bowel movement, she will be able to be discharged. Harvey Dave MD /[id number]
== END 2017-07-19 12:02 | disposition home or self-care (01) ==
LOC: JP.ED 09:29 → JP.SDS 14:30 → JP.MS 15:53
PROVIDERS: ADMIT Surgery; ATTEND Surgery
DX: K56.50 Intestinal adhesions [bands], unspecified as to partial versus complete obstruction (principal); I10 Essential (primary) hypertension; E78.5 Hyperlipidemia, unspecified; F41.9 Anxiety disorder, unspecified; F32.9 Major depressive disorder, single episode, unspecified; Z88.0 Allergy status to penicillin; Z88.1 Allergy status to other antibiotic agents; Z88.2 Allergy status to sulfonamides; Z79.2 Long term (current) use of antibiotics; Z79.899 Other long term (current) drug therapy; F17.210 Nicotine dependence, cigarettes, uncomplicated
CPT/HCPCS: 36415; 49002; 49020; 74022; 74177; 80048; 80053; 81001; 85025; 85027; 87070; 87075; 87086; 87088; 87186; 87205; A9270; J0330; J1100; J1170; J1200; J1650; J1885; J1956; J2250; J2405; J2704; J2710; J3010; J3410; J7030; J7040; J7120

== ENCOUNTER 2017-07-20 21:33 | Emergency (ER) | payer BC ==
[2017-07-20 22:52] VITALS: BP 140/73
--- NOTE | 2017-07-21 01:08 | EDM.PDOC ---
ED HPI GENERAL MEDICAL PROBLEM - General Chief Complaint: General Stated Complaint: ABDOMINAL PAIN Time Seen by Provider: 07/20/17 23:36 Source of Information: Reports: Patient History Limitations: Reports: No Limitations - History of Present Illness INITIAL COMMENTS - FREE TEXT/NARRATIVE: This patient comes in thinking she may have a DVT. Recently she had an abdominal hernia repair by Dr. Torres followed by a bowel obstruction Dr. Dave took care of that. Today she notices that her left leg is visibly swollen it feels tight but it doesn't really hurt. She also notices that there seems to be some swelling down in the lower abdomen and suprapubic area perineum and so forth. She says she's been up a lot recently Lower Abdominal Pain Score (Numeric/FACES): 8 - Related Data Allergies Allergy/AdvReac Type Severity Reaction Status Date / Time Penicillins Allergy Mild Hives Verified 07/17/17 09:35 levofloxacin [From Levaquin] Allergy Difficulty Verified 07/17/17 13:32 Breathing Sulfa (Sulfonamide Allergy hives Verified 07/17/17 09:35 Antibiotics) itching Home Meds: Home Meds Estradiol [Estrace] 1 mg PO DAILY 02/02/13 [History] Amphetamine/Dextroamphetamine [Adderall] 30 mg PO DAILY tablet 11/12/16 [Rx] oxyCODONE 5 mg PO Q4H PRN #0 tablet 11/12/16 [Rx] ARIPiprazole [Abilify] 15 mg PO DAILY 06/16/17 [History] Hydrocodone/Acetaminophen [[place] 10-325 Tablet] 1 - 2 tab PO Q4H PRN 06/16/17 [ History] Lidocaine 5% [Lidoderm 5%] 1 patch TOP Q12H PRN 06/16/17 [History] Topiramate [Topamax] 50 mg PO DAILY 06/16/17 [History] QUEtiapine [SEROquel] 25 - 50 mg PO BEDTIME PRN 06/30/17 [History] Diclofenac Sodium [Pennsaid] 0 cm TP Q6HR 07/07/17 [History] Pregabalin [Lyrica] 75 mg PO BID 07/08/17 [History] Zolpidem Tartrate [Ambien] 5 mg PO BEDTIME PRN #20 tablet 07/10/17 [Rx] Ciprofloxacin HCl [Cipro] 500 mg PO BID 07/20/17 [History] Past Medical History - Past Health History Medical/Surgical History: Denies Medical/Surgical History HEENT History: Reports: Cataract, Sinusitis Cardiovascular History: Reports: High Cholesterol, Hypertension Respiratory History: Reports: Pneumonia, Recurrent Gastrointestinal History: Reports: None Genitourinary History: Reports: Pyelonephritis, UTI, Recurrent 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: Reports: , Prolapsed Uterus, Spontaneous Musculoskeletal History: Reports: Back Pain, Chronic, Other (See Below) Other Musculoskeletal History: epicondilitis Neurological History: Reports: Concussion Psychiatric History: Reports: ADHD, Anxiety, Depression, Learning Disability, Mood Swings, Panic Attack, PTSD Dermatologic History: Reports: Other (See Below) Other Dermatologic History: excessive dryness - Infectious Disease History Infectious Disease History: Reports: Chicken Pox - Past Surgical History Head Surgeries/Procedures: Reports: None HEENT Surgical History: Reports: Cataract Surgery, Other (See Below) Cardiovascular Surgical History: Reports: None Respiratory Surgical History: Reports: None GI Surgical History: Reports: Appendectomy, Colonoscopy, EGD, Hernia, Abdominal , Other (See Below) Female Surgical History: Reports: Cervical Cryotherapy, Hysterectomy Neurological Surgical History: Reports: None Musculoskeletal Surgical History: Reports: Carpal Tunnel, Other (See Below) Other Musculoskeletal Surgeries/Procedures:: right elbow surgery Dermatological Surgical History: Reports: None Social & Family History - Family History Family Medical History: Noncontributory - Tobacco Use Smoking Status *Q: Heavy Tobacco Smoker Years of Tobacco use: 40 Packs/Tins Daily: 0.7 Used Tobacco, but Quit: No Month/Year Tobacco Last Used: JAN Second Hand Smoke Exposure: Yes - Caffeine Use Caffeine Use: Reports: Soda - Alcohol Use Days Per Week of Alcohol Use: 0 - Recreational Drug Use Recreational Drug Use: No ED ROS GENERAL - Review of Systems Review Of Systems: ROS reveals no pertinent complaints other than HPI. ED EXAM, GENERAL - Physical Exam Exam: See Below Exam Limited By: No Limitations General Appearance: Alert, No Apparent Distress, Obese Eye Exam: Bilateral Eye: Normal Inspection Respiratory/Chest: Lungs Clear Cardiovascular: Regular Rate, Rhythm GI/Abdominal: Other (The abdomen is soft bowel sounds are normal she has a number of incisions scattered about the abdomen consistent with the recent laparoscopic surgery. There is some mild edema to the soft tissues in the suprapubic area and down in to the perineum. There is also swelling of the left leg) Extremities: Other (Left leg shows uniform swelling which is mild but of visible. There is no erythema to the leg and the leg is nontender and there are no palpable cords.) Neurological: Alert, Oriented Skin Exam: Other (As above) Course - Vital Signs Last Recorded V/S: Last Vital Signs Temp 36.4 C 07/20/17 22:30 Pulse 78 07/20/17 22:51 Resp 16 07/20/17 22:51 BP 140/73 07/20/17 22:51 Pulse Ox 98 07/20/17 22:51 - Orders/Labs/Meds Orders: Active Orders 24 hr Category Date Time Status VL Duplex Lwr Ext Veins Ltd Lt [US] Stat Exams 07/21/17 00:30 Taken Labs: Laboratory Tests 07/20/17 07/20/17 Range/Units 23:58 23:58 WBC 12.2 H (4.5-11.0) K/uL RBC 3.69 (3.30-5.50) M/uL Hgb 12.1 (12.0-15.0) g/dL Hct 34.8 L (36.0-48.0) % MCV 94 (80-98) fL MCH 33 H (27-31) pg MCHC 35 (32-36) % Plt Count 157 (150-400) K/uL Neut % (Auto) 64 (36-66) % Lymph % (Auto) 27 (24-44) % [place] % (Auto) 7 H (2-6) % Eos % (Auto) 2 (2-4) % Baso % (Auto) 1 (0-1) % Sodium 142 (140-148) mmol/L Potassium 4.2 (3.6-5.2) mmol/L Chloride 108 (100-108) mmol/L Carbon Dioxide 24 (21-32) mmol/L Anion Gap 10.0 (5.0-14.0) mmol/L BUN 9 (7-18) mg/dL Creatinine 0.6 (0.6-1.0) mg/dL Est Cr Clr Drug Dosing 100.34 mL/min Estimated GFR (MDRD) > 60 (>60) Glucose 89 (74-106) mg/dL Calcium 8.6 (8.5-10.1) mg/dL Total Bilirubin 0.3 (0.2-1.0) mg/dL AST 26 (15-37) U/L ALT 23 (12-78) U/L Alkaline Phosphatase 86 (46-116) U/L Total Protein 6.8 (6.4-8.2) g/dL Albumin 3.0 L (3.4-5.0) g/dL Globulin 3.8 H (2.3-3.5) g/dL Albumin/Globulin Ratio 0.8 L (1.2-2.2) - Radiology Interpretation Free Text/Narrative:: Venous Doppler of the left leg showed no evidence of DVT Departure - Departure Time of Disposition: 01:06 Disposition: Home, Self-Care 01 Condition: Fair Clinical Impression: Left leg swelling - Discharge Information Instructions: Edema Referrals: Matt Joe Sr, MD [Primary Care Provider] - Forms: ED Department Discharge Additional Instructions: There is no evidence of a blood clot in your leg. It's is just simple swelling. It's okay to be up moving around but when you're not active then you should lie down with your legs elevated. Contact your doctor for any more problems return to the ER at any time if needed - My Orders Last 24 Hours: My Active Orders 07/21/17 00:30 VL Duplex Lwr Ext Veins Ltd Lt [US] Stat - Assessment/Plan Last 24 Hours: My Active Orders 07/21/17 00:30 VL Duplex Lwr Ext Veins Ltd Lt [US] Stat
--- NOTE | 2017-07-21 08:26 | US ---
VL Duplex Lwr Ext Veins Ltd Lt HISTORY: post op swelling lt leg FINDINGS: Deep venous system of the left lower extremity demonstrates normal blood flow and compressibility thr oughout. Normal Doppler waveform variation is seen with respiration and calf compression. No color fl ow abnormality can be seen. Right common femoral vein is clear. IMPRESSION: No sonographic evidence for DVT left lower extremity.
== END 2017-07-21 01:20 | disposition home or self-care (01) ==
LOC: JP.ED 21:33
DX: R22.42 Localized swelling, mass and lump, left lower limb (principal); F17.210 Nicotine dependence, cigarettes, uncomplicated; Z79.899 Other long term (current) drug therapy; Z88.0 Allergy status to penicillin; Z88.1 Allergy status to other antibiotic agents
CPT/HCPCS: 36415; 80053; 85025; 93971-26-LT; 93971-LT; 99284-25

== ENCOUNTER → 2018-07-20 | Outpatient (CLI) | payer OTHER ==
--- NOTE | 2018-07-20 17:08 | CRLMR ---
INDICATION: Chronic low back pain. Leg pain. COMPARISON: None. TECHNIQUE: Sagittal T1, T2, and STIR sequences. Axial T1 and T2 weighted sequences. FINDINGS: Normal vertebral body alignment. No fracture. Vertebral body loss of height. No spondylosis. No ligamentous injury. Normal marrow signal. No suspicious osseous lesions. Number conus terminates at L1. T12-L1: No spinal canal or neural from a name. L1-2: Disc degeneration with loss of disc height. Posterior disc bulge. No narrowing of spinal canal. No neural foraminal narrowing. L2-3: Mild disc degeneration with diffuse disc bulge. No narrowing of spinal canal. No neural foraminal narrowing. L3-4: Mild disc degeneration with diffuse disc bulge eccentric to the left. No narrowing of spinal canal. Mild narrowing of the left neural foramen. No narrowing of the right neural foramen. L4-5: Mild disc degeneration with posterior disc bulge. Mild narrowing of spinal canal. No neural foraminal narrowing. Mild bilateral facet arthropathy. L5-S1: No narrowing of spinal canal. No impingement of the traversing S1 nerve roots. No neural foraminal narrowing. Mild bilateral facet arthropathy. Normal visualized SI joints. Normal paraspinal soft tissues. IMPRESSION: 1. Normal alignment. No fractures. 2. At L3-4 mild disc degeneration with diffuse disc bulge. Narrowing of the spinal canal. Mild narrowing of the left neural foramina 3. At L4-5, mild disc degeneration with posterior disc bulge 4. No spinal canal or neural foraminal narrowing at the remaining levels Dictated by Josh Leonardo MD @ 07/20/2018 5:04:31 PM Dictated by: Josh Leonardo MD @ 07/20/2018 17:05:59 (Electronically Signed)
== END ==
LOC: JP.MRI 11:37
PROVIDERS: ATTEND Internal Medicine
DX: M54.5 Low back pain (principal); M54.16 Radiculopathy, lumbar region; M51.36 Other intervertebral disc degeneration, lumbar region
CPT/HCPCS: 72148

== ENCOUNTER 2018-08-08 06:48 | Day surgery (SDC) | payer BC ==
[~2018-08-08 06:48] MED LIST: Lidocaine 1% with EPINEPHrine 1:100,000 50 ML MDV ONE
[2018-08-08] MEDS ORDERED: fentaNYL 100 MCG/2 ML SDV ONE (07:16)
[2018-08-08] MEDS ORDERED: Propofol 200 MG/20 ML SDV ONE ×2 (07:16→08:50)
[2018-08-08] MEDS ORDERED: Midazolam 1 MG/ML 2 ML SDV ONE (07:16)
[2018-08-08] MEDS ORDERED: Lidocaine 0.5% 50 ML SDV ONE (07:19)
[2018-08-08] MEDS ORDERED: Dextrose 5%-Lactated Ringers 1,000 ML IV SCH (07:30)
[2018-08-08] MEDS ORDERED: ceFAZolin 2 GM in Premix Bag 1 BAG IV ONE (07:30)
[2018-08-08 10:28] VITALS: BP 79/48
--- NOTE | 2018-08-10 08:51 | OR ---
DATE OF PROCEDURE: 08/08/2018 SURGEON: Jason Torres MD PREOPERATIVE DIAGNOSIS: Recurrent left carpal tunnel syndrome. POSTOPERATIVE DIAGNOSIS: Recurrent left carpal tunnel syndrome. OPERATIVE PROCEDURE: Left carpal tunnel release (53654). ANESTHESIA: IV block plus sedation. EASTER BUNNY: ROSARIO Stanley INDICATIONS FOR PROCEDURE: This 53-year-old is several years status post bilateral carpal tunnel release. She presented recently with recurrent carpal tunnel type symptoms. An EMG was obtained, which showed left carpal tunnel syndrome, and the right side interestingly did not show that on EMG, but she had similar symptoms. Plan will be to proceed with a left carpal tunnel release at this time. If this is successful, we may just need to empirically do the right side subsequently. Potential risks of the procedure including bleeding, infection, possible incomplete relief of symptoms, possible injury to underlying nerves were discussed, and the patient wishes to proceed. DETAILS OF PROCEDURE: The patient was taken to the operating room, and after intravenous block was placed affecting the left forearm and hand, those areas were prepped and draped. The previous carpal tunnel incision was then reused, extending slightly medially to enter into a clean plane. The patient had quite a bit of dense scar over the median nerve root, which was then divided and this extended downward into the palm of the hand as well, at which point there appeared to be complete release of any scar over the carpal tunnel. The nerve at this point appeared to be intact. We maintained an ulnar orientation with regard to the underlying nerve during the course of the dissection. The deeper soft tissues were approximated with some 4-0 Vicryl stitch and skin with a 5-0 Prolene stitch. Dressing was applied. The patient was taken to the recovery room in satisfactory condition. Jason Torres MD /[id number]
== END 2018-08-08 10:45 | disposition home or self-care (01) ==
LOC: JP.SDS 06:48
PROVIDERS: ATTEND Surgery
DX: G56.02 Carpal tunnel syndrome, left upper limb (principal); I10 Essential (primary) hypertension; E78.00 Pure hypercholesterolemia, unspecified; F43.10 Post-traumatic stress disorder, unspecified
CPT/HCPCS: 64721; J0690; J2250; J2704; J3010; J7042

== ENCOUNTER 2018-08-22 05:44 | Day surgery (SDC) | payer BC ==
[2018-08-22] MEDS ORDERED: Lidocaine 1% with EPINEPHrine 1:100,000 50 ML MDV ONE (06:43)
[2018-08-22] MEDS ORDERED: Dextrose 5%-Lactated Ringers 1,000 ML IV SCH (06:45)
[2018-08-22] MEDS ORDERED: Lidocaine 0.5% 50 ML SDV ONE (07:10)
[2018-08-22] MEDS ORDERED: fentaNYL 100 MCG/2 ML SDV ONE (07:10)
[2018-08-22] MEDS ORDERED: Propofol 200 MG/20 ML SDV ONE ×2 (07:10→07:52)
[2018-08-22] MEDS ORDERED: Midazolam 1 MG/ML 2 ML SDV ONE (07:10)
[2018-08-22] MEDS ORDERED: ceFAZolin 2 GM in Premix Bag 1 BAG IV ONE (07:15)
[2018-08-22] MEDS ORDERED: Ketorolac 60 MG/2 ML SDV ONE (07:57)
[2018-08-22] MEDS ORDERED: HYDROmorphone 1 MG/ML Syringe IVPUSH PRN (09:15)
[2018-08-22] MEDS ORDERED: HYDROmorphone 1 MG/ML Syringe IVPUSH ONE (09:27)
[2018-08-22 10:27] VITALS: BP 106/67
--- NOTE | 2018-08-29 08:24 | OR ---
DATE OF PROCEDURE: 08/22/2018 SURGEON: Jason Torres MD PREOPERATIVE DIAGNOSIS: Probable recurrent right carpal tunnel syndrome. POSTOPERATIVE DIAGNOSIS: Probable recurrent right carpal tunnel syndrome. OPERATIVE PROCEDURE: Right carpal tunnel release (68258). ANESTHESIA: IV block plus sedation. RN ANGIOGRAPHY: JUANY Stanley. INDICATIONS FOR PROCEDURE: This is a 53-year-old female, who is several years status post bilateral carpal tunnel release. She has had recurrent symptoms of carpal tunnel syndrome. An EMG was obtained, which did show evidence of median nerve compression at the carpal tunnel on the left side, but failed to do so on the right. A carpal tunnel release on the left had been completed around two weeks ago, and that did result in good relief of symptoms. With this, we are going to empirically re-release the right side as well. It is possible that there maybe some distal compression of the median nerve beyond the point where the sensors would have been placed. Potential risks including bleeding, infection, injury to the median nerve and/or its branches, possible incomplete relief of symptoms were all reviewed with the patient, and she wishes to proceed. DETAILS OF PROCEDURE: The patient was taken to the operating room and after IV block was placed affecting the right forearm and hand, those areas were prepped and draped. The carpal tunnel incision was then reused and extended somewhat proximal to enter the plane of dissection in a clean area. The soft tissues over the median nerve were then divided under direct vision and maintained normal ulnar orientation with regard to the underlying median nerve. As one extended somewhat further beyond the incision in the palm, there did appear to be a tight area in that region, which was divided as well. Once the entire length of the median nerve was freed up and there appeared to be no evident complications, the incision was closed with some 4-0 Vicryl subdermal stitch, along with 4-0 Prolene skin stitch. Dressing was applied. The patient was taken to the recovery room in satisfactory condition. There were no evident complications. Jason Torres MD /[id number]
== END 2018-08-22 10:37 | disposition home or self-care (01) ==
LOC: JP.SDS 05:44
PROVIDERS: ATTEND Surgery
DX: G56.01 Carpal tunnel syndrome, right upper limb (principal); E78.00 Pure hypercholesterolemia, unspecified; M54.5 Low back pain; F90.9 Attention-deficit hyperactivity disorder, unspecified type; F32.9 Major depressive disorder, single episode, unspecified; F41.9 Anxiety disorder, unspecified
CPT/HCPCS: 64721; J0690; J1170; J1885; J2250; J2704; J3010; J7042

== ENCOUNTER 2018-10-27 07:22 | Day surgery (SDC) | payer BC, OTHER ==
[~2018-10-27 07:22] MED LIST changes: -Lidocaine 1% with EPINEPHrine 1:100,000 50 ML MDV ONE; +Midazolam 1 MG/ML 2 ML SDV ONE; +Propofol 200 MG/20 ML SDV ONE; +fentaNYL 100 MCG/2 ML SDV ONE
[2018-10-27] MEDS ORDERED: Dextrose 5%-Lactated Ringers 1,000 ML IV SCH (08:15)
[2018-10-27] MEDS ORDERED: Albuterol/Ipratropium 3.0-0.5 MG/3 ML Neb Soln NEB ONE (08:15)
[2018-10-27] MEDS ORDERED: Glycopyrrolate 0.2 MG/ML 2 ML SDV IVPUSH ONE (08:30)
[2018-10-27] MEDS ORDERED: Lidocaine 4% Top Soln 50 ML Bottle ONE (09:35)
[2018-10-27] MEDS ORDERED: Lidocaine 2% Viscous Solution 15 ML Cup ONE (09:35)
[2018-10-27] MEDS ORDERED: Propofol 200 MG/20 ML SDV ONE (09:46)
[2018-10-27 11:06] VITALS: BP 126/86; PULSE 79
--- NOTE | 2018-11-07 12:46 | OR ---
DATE OF PROCEDURE: 10/27/2018 PREOPERATIVE DIAGNOSES: 1. Interstitial infiltrates. 2. Hilar and mediastinal lymphadenopathy. POSTOPERATIVE DIAGNOSES: 1. Interstitial infiltrates. 2. Hilar and mediastinal lymphadenopathy. OPERATIVE PROCEDURES: Flexible bronchoscopy with tracheobronchial washings. 1. Bronchoalveolar lavage, left lower lobe (86265). 2. Transbronchial needle aspiration biopsy, subcarinal node (53042). ANESTHESIA: Topical plus IV sedation. INDICATIONS FOR PROCEDURE: This is a 53-year-old presenting with some shortness of breath and recently some degree of hypoxia and ongoing cough. A CT scan of the chest showed some hilar mediastinal lymphadenopathy along with interstitial opacities, these being more prominent in the lower lobes. The plan is to proceed with flexible bronchoscopy with biopsies and collection of other specimens as indicated. Potential risks, including bleeding, aspiration of gastric contents, or worsening of her respiratory status, were all reviewed with the patient, and she wishes to proceed. DETAILS OF PROCEDURE: The patient was taken to the operating room and placed in a supine position with the head up in the range of 20 degrees. IV sedation was administered, after which the nasal passages were anesthetized with topical lidocaine, and Anesthesia then placed transtrachial lidocaine. A flexible bronchoscope was then passed through the right side of the nose. The visualized hypopharynx and larynx were unremarkable. Cord motion was symmetrical. As one entered the trachea, there were only some scant mucoid secretions. The secretions were not to any extent purulent. General tracheobronchial examination was unremarkable. This showed some reddening of the bronchial tree, beginning at the level of the segmental bronchi, particularly in the lower lobes. At this point, diffuse tracheobronchial washings were obtained. Following this, the bronchoscope was lodged in the medial basilar segments of the left lower lobe and 200 mL of saline injected. This fluid was then evacuated and sent for bronchoalveolar lavage evaluation. At this point, within the nodes the most tree part of the mediastinal lymph nodes biopsy was fairly bulky, so subcarinal lymph node using the transbronchial needle for aspiration instrument, 2 sites at the kalie were aspirated and this sent in solution. No significant bleeding was noted, and the procedure was then concluded. The patient was taken to the recovery room in satisfactory condition. There were no evident complications. One noticed the patient clinically and by urinalysis appears to have a urinary tract infection. She has quite a bit in the way of antibiotic allergies and will be started on Macrobid 100 mg q.i.d. x7 days, and she will be then set up with followup protocol with Dr. Joe next week. Jason Torres MD /[id number]
== END 2018-10-27 11:25 | disposition home or self-care (01) ==
LOC: JP.SDS 07:22
PROVIDERS: ATTEND Surgery
DX: R59.0 Localized enlarged lymph nodes (principal)
CPT/HCPCS: 31624; 31629; 81001; 87015; 87070; 87086; 87088; 87102; 87116; 87186; 87205; 87206; 87220; 88112; 88305; A9270; J2250; J2704; J3010; J3490; J7042; J7620-GY

== ENCOUNTER 2018-11-08 19:41 | Emergency (ER) | payer BC, OTHER ==
[2018-11-08] MEDS ORDERED: HYDROmorphone 1 MG/ML Syringe IVPUSH ONE (21:01)
[2018-11-08] MEDS ORDERED: Ondansetron 4 MG/2 ML SDV IVPUSH ONE (21:02)
[2018-11-08] MEDS ORDERED: Sodium Chloride 0.9% 1,000 ML IV SCH (21:15)
--- NOTE | 2018-11-08 21:55 | EDM.PDOC ---
ED HPI GENERAL MEDICAL PROBLEM - General Chief Complaint: General Stated Complaint: LOW BP Time Seen by Provider: 11/08/18 20:36 Source of Information: Reports: Patient, Family (Son at bedside) History Limitations: Reports: No Limitations - History of Present Illness INITIAL COMMENTS - FREE TEXT/NARRATIVE: chief complaint: multi complaints This is a 53 year old female with multi health conditions. reports has been sick for 3 weeks. 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 with adult Son. 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 (see below) (has been taking home medication) Upper Headache Pain Score (Numeric/FACES): 5 - Related Data Allergies Allergy/AdvReac Type Severity Reaction Status Date / Time levofloxacin [From Levaquin] Allergy Severe Difficulty Verified 08/22/18 06:08 Breathing Penicillins Allergy Mild Hives Verified 08/22/18 06:08 bee venom protein (honey bee) Allergy Hives Verified 08/22/18 06:08 Sulfa (Sulfonamide Allergy hives Verified 08/22/18 06:08 Antibiotics) itching Home Meds: Home Meds oxyCODONE 5 mg PO Q4H PRN #0 tablet 11/12/16 [Rx] ALPRAZolam [Xanax] 1 mg PO TID 08/05/18 [History] Fluticasone Propionate [Flonase Allergy Relief] 2 sprays NASBOTH DAILY 08/05/18 [History] Lisdexamfetamine Dimesylate [Vyvanse] 50 mg PO DAILY 08/05/18 [History] Cholecalciferol (Vitamin D3) [Vitamin D3] 1,000 unit PO DAILY 08/08/18 [History] Escitalopram [Lexapro] 20 mg PO DAILY 08/08/18 [History] Lisdexamfetamine [Vyvanse] 50 mg PO DAILY 08/08/18 [History] Lisinopril 10 mg PO DAILY 08/08/18 [History] Methocarbamol 500 mg PO DAILY 08/08/18 [History] Rosuvastatin [Crestor] 20 mg PO DAILY 08/08/18 [History] fentaNYL [Duragesic] 25 mcg TOP ASDIRECTED 08/08/18 [History] traZODone 100 mg PO DAILY 08/08/18 [History] Albuterol [Ventolin HFA] 1 - 2 puff IH Q4H PRN 08/19/18 [History] Cyclobenzaprine [Flexeril] 10 mg PO BEDTIME 08/19/18 [History] Diclofenac Sodium [Pennsaid] 1 applic TOP Q6HR 08/19/18 [History] Diphenhyd/Lidocaine/Nystatin [First-Bxn Mouthwash] 5 ml PO TIDMEALS 08/19/18 [ History] EPINEPHrine [Epipen] 0.3 mg IM ASDIRECTED PRN 08/19/18 [History] Estradiol [Estrace] 1 mg PO DAILY 08/19/18 [History] Hydrocodone/Acetaminophen [[place] 7.5-325 Tablet] 1 - 2 tab PO Q6H PRN 08/19/18 [ History] Lidocaine 5% [Lidoderm 5%] 1 patch TOP DAILY 08/19/18 [History] Loratadine [Claritin] 10 mg PO DAILY 08/19/18 [History] Multivitamin with Minerals [Multiple Vitamin] 1 tab PO DAILY 08/19/18 [History] Mupirocin Oint [Bactroban Oint] 1 applic TP BID 08/19/18 [History] Triamcinolone Acetonide [Triamcinolone Acetonide 0.1% Crm] 1 applic TOP TID 07/05 [History] oxyCODONE HCl/Acetaminophen [Percocet 10-325 mg Tablet] 1 - 2 tab PO Q6H PRN 07/05 [History] Past Medical History - Past Health History Medical/Surgical History: Denies Medical/Surgical History HEENT History: Reports: Cataract, Hard of Hearing, Impaired Vision, Sinusitis, Other (See Below) Other HEENT History: wears glasses Cardiovascular History: Reports: High Cholesterol, Hypertension Respiratory History: Reports: Pneumonia, Recurrent, Other (See Below) Other Respiratory History: lung mass; ecoli in lungs Gastrointestinal History: Reports: Bowel Obstruction Genitourinary History: Reports: Pyelonephritis, UTI, 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: , Prolapsed Uterus, Spontaneous Musculoskeletal History: Reports: Back Pain, Chronic, Other (See Below) Other Musculoskeletal History: epicondilitis, 4 BULGING DISCS LOWER BACK Neurological History: Reports: Concussion, Headaches, Chronic, Vertigo Psychiatric History: Reports: ADHD, Anxiety, Depression, Learning Disability, Mood Swings, Panic Attack, PTSD Dermatologic History: Reports: Other (See Below) Other Dermatologic History: excessive dryness - Infectious Disease History Infectious Disease History: Reports: Chicken Pox - Past Surgical History Head Surgeries/Procedures: Reports: None HEENT Surgical History: Reports: Cataract Surgery, Other (See Below) Other HEENT Surgeries/Procedures: reconstructive surgery on ear. Cardiovascular Surgical History: Reports: None Respiratory Surgical History: Reports: Lung Biopsies GI Surgical History: Reports: Appendectomy, Colonoscopy, EGD, Hernia, Abdominal , Other (See Below) Female Surgical History: Reports: Cervical Cryotherapy, Hysterectomy Neurological Surgical History: Reports: None Musculoskeletal Surgical History: Reports: Carpal Tunnel, Other (See Below) Other Musculoskeletal Surgeries/Procedures:: right elbow surgery Dermatological Surgical History: Reports: None Social & Family History - Family History Family Medical History: Noncontributory - Tobacco Use Smoking Status *Q: Current Every Day Smoker Years of Tobacco use: 30 Packs/Tins Daily: 1 - Caffeine Use Caffeine Use: Reports: Soda Other Caffeine Use: 6 CANS PER DAY Caffeine Use Comment: daily use - Recreational Drug Use Recreational Drug Use: No - Living Situation & Occupation Living situation: Reports: (lives in [place], [place] with Son) ED ROS GENERAL - Review of Systems Review Of Systems: See Below Constitutional: Reports: Chills, Malaise, Weakness, Fatigue, Decreased Appetite HEENT: Reports: No Symptoms Respiratory: Reports: No Symptoms Cardiovascular: Reports: No Symptoms Endocrine: Reports: Fatigue GI/Abdominal: Reports: Abdominal Pain (right upper quadrant), Decreased Appetite , Nausea : Reports: Other (recent UTI treated with Macrobid) Musculoskeletal: Reports: Muscle Pain (chronic pain), Muscle Stiffness (chronic pain ) Skin: Reports: Other (report tick bite to right shoulder upper back area) Neurological: Reports: Headache (3 weeks), Weakness (very tired and weak for the past 3 weeks) Psychiatric: Reports: No Symptoms Hematologic/Lymphatic: Reports: No Symptoms Immunologic: Reports: No Symptoms ED EXAM, GENERAL - Physical Exam Exam: See Below Exam Limited By: No Limitations General Appearance: Alert, WD/WN, Other (appears fatigue, well nourished.) Eye Exam: Bilateral Eye: Abnormal EOM, EOMI, PERRL Ears: Normal External Exam, Normal Canal, Hearing Grossly Normal, Normal TMs Ear Exam: Bilateral Ear: Canal Normal, TM normal Nose: Normal Inspection, Normal Mucosa, No Blood Throat/Mouth: Normal Inspection, Normal Lips, Normal Teeth, Normal Gums, Normal Voice, No Airway Compromise, Other (tongue pink and moist) Head: Atraumatic, Normocephalic Neck: Normal Inspection, Supple, Non-Tender, Full Range of Motion Respiratory/Chest: No Respiratory Distress, Lungs Clear, Normal Breath Sounds, No Accessory Muscle Use, Chest Non-Tender Cardiovascular: Normal Peripheral Pulses, Regular Rate, Rhythm, No Edema, No Murmur Peripheral Pulses: 2+: Brachial (L), Brachial (R), Dorsalis Pedis (L), Dorsalis Pedis (R) GI/Abdominal: Normal Bowel Sounds, Soft, Tender (right upper quadrant) Back Exam: Normal Inspection, Full Range of Motion Extremities: Normal Inspection, Normal Range of Motion, Non-Tender, Normal Capillary Refill Neurological: Alert, Oriented, Normal Cognition, Normal Gait, No Motor/Sensory Deficits Psychiatric: Normal Affect, Normal Mood Skin Exam: Warm, Dry, Intact, Normal Color, No Rash Lymphatic: No Adenopathy Course - Vital Signs Last Recorded V/S: Last Vital Signs Temp 36.2 C 11/08/18 20:28 Pulse 61 11/08/18 21:16 Resp 10 L 11/08/18 21:16 BP 91/40 L 11/08/18 21:16 Pulse Ox 94 L 11/08/18 21:16 - Orders/Labs/Meds Orders: Active Orders 24 hr Category Date Time Status CULTURE BLOOD [BC] Urgent Lab 11/08/18 21:30 Received CULTURE BLOOD [BC] Urgent Lab 11/08/18 21:40 Received Sodium Chloride 0.9% [Normal Saline] 1,000 ml Med 11/08/18 21:15 Active IV ASDIRECTED Blood Culture x2 Reflex Set [OM.PC] Urgent Oth 11/08/18 21:03 Ordered Medication Orders Sodium Chloride (Normal Saline) 1,000 mls @ 999 mls/hr IV ASDIRECTED YANA Last Admin: 11/08/18 21:32 Dose: 999 mls/hr Labs: Laboratory Tests 11/08/18 11/08/18 11/08/18 Range/Units 21:14 21:47 21:47 WBC 9.0 (4.5-11.0) K/uL RBC 3.58 (3.30-5.50) M/uL Hgb 11.5 L (12.0-15.0) g/dL Hct 36.2 (36.0-48.0) % MCV 101 H (80-98) fL MCH 32 H (27-31) pg MCHC 32 (32-36) % Plt Count 337 (150-400) K/uL Neut % (Auto) 38 (36-66) % Lymph % (Auto) 40 (24-44) % [place] % (Auto) 7 H (2-6) % Eos % (Auto) 14 H (2-4) % Baso % (Auto) 1 (0-1) % Sodium 139 L (140-148) mmol/L Potassium 4.0 (3.6-5.2) mmol/L Chloride 105 (100-108) mmol/L Carbon Dioxide 29 (21-32) mmol/L Anion Gap 9.0 (5.0-14.0) mmol/L BUN 13 (7-18) mg/dL Creatinine 0.6 (0.6-1.0) mg/dL Est Cr Clr Drug Dosing 99.18 mL/min Estimated GFR (MDRD) > 60 (>60) Glucose 120 H (74-106) mg/dL Calcium 8.2 L (8.5-10.1) mg/dL Magnesium 1.7 L (1.8-2.4) mg/dL Total Bilirubin 0.1 L D (0.2-1.0) mg/dL AST 43 H (15-37) U/L ALT 83 H (12-78) U/L Alkaline Phosphatase 81 (46-116) U/L Total Protein 6.1 L (6.4-8.2) g/dL Albumin 2.9 L (3.4-5.0) g/dL Globulin 3.2 (2.3-3.5) g/dL Albumin/Globulin Ratio 0.9 L (1.2-2.2) Amylase (25-115) U/L Lipase (73-393) U/L Urine Color Yellow Urine Appearance Clear Urine pH 6.0 (4.5-8.0) Ur Specific [place] 1.025 (1.008-1.030) Urine Protein Negative (NEGATIVE) mg/dL Urine Glucose (UA) Normal (NEGATIVE) mg/dL Urine Ketones Negative (NEGATIVE) mg/dL Urine Occult Blood Negative (NEGATIVE) Urine Nitrite Negative (NEGATIVE) Urine Bilirubin Negative (NEGATIVE) Urine Urobilinogen Normal (NORMAL) mg/dL Ur Leukocyte Esterase Negative (NEGATIVE) Urine RBC 0-5 (0-5) Urine WBC 0-5 (0-5) Ur Epithelial Cells Moderate Amorphous Sediment Not seen Urine Bacteria Moderate Urine Mucus Moderate Urine Other 11/08/18 Range/Units 21:47 WBC (4.5-11.0) K/uL RBC (3.30-5.50) M/uL Hgb (12.0-15.0) g/dL Hct (36.0-48.0) % MCV (80-98) fL MCH (27-31) pg MCHC (32-36) % Plt Count (150-400) K/uL Neut % (Auto) (36-66) % Lymph % (Auto) (24-44) % [place] % (Auto) (2-6) % Eos % (Auto) (2-4) % Baso % (Auto) (0-1) % Sodium (140-148) mmol/L Potassium (3.6-5.2) mmol/L Chloride (100-108) mmol/L Carbon Dioxide (21-32) mmol/L Anion Gap (5.0-14.0) mmol/L BUN (7-18) mg/dL Creatinine (0.6-1.0) mg/dL Est Cr Clr Drug Dosing mL/min Estimated GFR (MDRD) (>60) Glucose (74-106) mg/dL Calcium (8.5-10.1) mg/dL Magnesium (1.8-2.4) mg/dL Total Bilirubin (0.2-1.0) mg/dL AST (15-37) U/L ALT (12-78) U/L Alkaline Phosphatase (46-116) U/L Total Protein (6.4-8.2) g/dL Albumin (3.4-5.0) g/dL Globulin (2.3-3.5) g/dL Albumin/Globulin Ratio (1.2-2.2) Amylase 35 (25-115) U/L Lipase 117 (73-393) U/L Urine Color Urine Appearance Urine pH (4.5-8.0) Ur Specific [place] (1.008-1.030) Urine Protein (NEGATIVE) mg/dL Urine Glucose (UA) (NEGATIVE) mg/dL Urine Ketones (NEGATIVE) mg/dL Urine Occult Blood (NEGATIVE) Urine Nitrite (NEGATIVE) Urine Bilirubin (NEGATIVE) Urine Urobilinogen (NORMAL) mg/dL Ur Leukocyte Esterase (NEGATIVE) Urine RBC (0-5) Urine WBC (0-5) Ur Epithelial Cells Amorphous Sediment Urine Bacteria Urine Mucus Urine Other Meds: Medications Generic Name Dose Route Start Last Admin Trade Name Freq PRN Reason Stop Dose Admin Sodium Chloride 1,000 mls @ 999 mls/hr 11/08/18 21:15 11/08/18 21:32 Normal Saline IV 999 mls/hr ASDIRECTED YANA Administration Discontinued Medications Generic Name Dose Route Start Last Admin Trade Name Freq PRN Reason Stop Dose Admin Hydromorphone HCl 1 mg 11/08/18 21:01 11/08/18 21:32 Dilaudid IVPUSH 11/08/18 21:02 1 mg ONETIME ONE Administration Ondansetron HCl 4 mg 11/08/18 21:02 11/08/18 21:32 Zofran IVPUSH 11/08/18 21:03 4 mg ONETIME ONE Administration - Re-Assessments/Exams Free Text/Narrative Re-Assessment/Exam: 11/08/18 22:05 discussed with Mrs. Woo -will rule out any acute conditions: labs, CT head , CT abdomen-pelvis -rehydrate and medicate for pain and nausea: IV Normal Saline 999ml/hr, IV Dilaudid 1 mg, IV Zofran 4mg -await results to determine further plan of care. -Mrs. Woo and Son agree with plan of care 11/08/18 22:26 CT Head - no acute finding CT abdomen pelvis -normal, no acute finding. 11/08/18 22:29 CBC wbc 9.0, hgb 11.5, hct 36.2, plt 337 chemistries: Na 139, K+ 4.0, cl 105, anion gap 9.0, bun 13, cr 0.6, glucose 120 , amylase 35, lipase 117, LFT mild elevation Urine: clear yellow, negative ketone, leukocytes, blood, bacteria, WBC, RBC. No acute finding on labs, urine, Imaging. will discharge to home. follow up with Dr. Joe in the next 1 to 2 days 11/08/18 22:40 reviewed with Mrs. Woo, will discharge to home. reviewed all labs and imaging agrees with plan of care. Departure - Departure Time of Disposition: 22:40 Disposition: Home, Self-Care 01 Condition: Good Clinical Impression: Headache, Fatigue - Discharge Information *PRESCRIPTION DRUG MONITORING PROGRAM REVIEWED*: Not Applicable *COPY OF PRESCRIPTION DRUG MONITORING REPORT IN PATIENT CLARI: Not Applicable Instructions: General Headache Without Cause, [id number], Fatigue Referrals: Matt Joe Sr, MD [Primary Care Provider] - Forms: ED Department Discharge Care Plan Goals: Headache without cause, fatigue -push fluids -continue home medication -follow up with Primary Care Provider for recheck in 1 to9 2 days -return to ER if symptoms worsen or not improved or has any concerns. - Problem List & Annotations (1) Fatigue SNOMED Code(s): 90003372 Code(s): R53.83 - OTHER FATIGUE Status: Acute Priority: Medium Current Visit: Yes Qualifiers: Fatigue type: chronic, unspecified Qualified Code(s): R53.82 - Chronic fatigue, unspecified (2) Headache SNOMED Code(s): 12730748 Code(s): R51 - HEADACHE Status: Acute Priority: Medium Current Visit: Yes Qualifiers: Headache type: new daily persistent Qualified Code(s): G44.52 - New daily persistent headache (NDPH) - Problem List Review Problem List Initiated/Reviewed/Updated: Yes - My Orders Last 24 Hours: My Active Orders 11/08/18 21:03 Blood Culture x2 Reflex Set [OM.PC] Urgent 11/08/18 21:15 Sodium Chloride 0.9% [Normal Saline] 1,000 ml IV ASDIRECTED 11/08/18 21:30 CULTURE BLOOD [BC] Urgent 11/08/18 21:40 CULTURE BLOOD [BC] Urgent - Assessment/Plan Last 24 Hours: My Active Orders 11/08/18 21:03 Blood Culture x2 Reflex Set [OM.PC] Urgent 11/08/18 21:15 Sodium Chloride 0.9% [Normal Saline] 1,000 ml IV ASDIRECTED 11/08/18 21:30 CULTURE BLOOD [BC] Urgent 11/08/18 21:40 CULTURE BLOOD [BC] Urgent Plan: Headache without cause, fatigue -push fluids -continue home medication -follow up with Primary Care Provider for recheck in 1 to9 2 days -return to ER if symptoms worsen or not improved or has any concerns.
[2018-11-08 22:02] VITALS: BP 91/40
--- NOTE | 2018-11-08 22:08 | CRLCT ---
INDICATION: Headache. TECHNIQUE: 3 mm noncontrast axial imaging has been performed through the brain. Sagittal and coronal reconstructions have been obtained. FINDINGS: Ventricles, sulci, and cisterns are prominent consistent with some mild generalized cerebral atrophy. This is greatest in the bifrontal region. No acute intracerebral hemorrhage or midline shift is identified. No skull fracture is seen. The upper paranasal sinuses are clear. Right mastoid air cells are clear. Questionable postsurgical change from prior mastoid surgery on the left. IMPRESSION: No acute intracerebral hemorrhage or midline shift is noted. Some mild generalized cerebral atrophy is noted. Please note that all CT scans at this facility use dose modulation, iterative reconstruction, and/or weight-based dosing when appropriate to reduce radiation dose to as low as reasonably achievable. Dictated by Niko Mariano MD @ Nov 08 2018 10:07PM Signed by Dr. Niko Mariano @ Nov 08 2018 10:07PM
--- NOTE | 2018-11-08 22:15 | CRLCT ---
INDICATION: Right upper quadrant abdominal pain TECHNIQUE: CT Abdomen and pelvis without i.v. contrast. Coronal and sagittal reformats were obtained. COMPARISON: 07/17/2017 FINDINGS: Lower chest: Subpleural septal thickening and ill-defined centrilobular nodules are present within the lung bases. Findings may be due to connective tissue diseases or senescent fibrosis. Liver: Unremarkable. Spleen: Unremarkable. Pancreas: Unremarkable. Gallbladder: Unremarkable. Kidney: Unremarkable. No kidney or ureteral stones or obstruction seen. Adrenal: Unremarkable. Bowel: There is a gasless density near the ileocecal valve without any apparent obstruction of the terminal ileum. This is most likely due to small bowel contents incompletely mixing with cecal stool. Previous appendectomy noted with no significant appendiceal stump identified. Vascular: Unremarkable. Lymph: Unremarkable. Peritoneum: Unremarkable. No pneumoperitoneum is seen. No significant ascites is noted. Pelvis: The patient is status post prior hysterectomy. 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 Bone: Unremarkable for age. IMPRESSION: 1. Unremarkable with no CT correlate for the patient`s symptoms seen. Dictated by Hector Lenz MD @ 11/08/2018 10:13:33 PM Please note that all CT scans at this facility use dose modulation, iterative reconstruction, and/or weight-based dosing when appropriate to reduce radiation dose to as low as reasonably achievable. Dictated by: Hector Lenz MD @ 11/08/2018 22:13:47 (Electronically Signed)
[2018-11-08 22:18] VITALS: PULSE 62
== END 2018-11-08 22:55 | disposition home or self-care (01) ==
LOC: JP.ED 19:41
DX: R51 Headache (principal); R53.83 Other fatigue; E78.00 Pure hypercholesterolemia, unspecified; I10 Essential (primary) hypertension; F90.9 Attention-deficit hyperactivity disorder, unspecified type; F17.210 Nicotine dependence, cigarettes, uncomplicated; Z88.0 Allergy status to penicillin; Z88.1 Allergy status to other antibiotic agents; Z91.030 Bee allergy status; Z88.2 Allergy status to sulfonamides; Z79.899 Other long term (current) drug therapy
CPT/HCPCS: 36415; 70450; 74176; 80053; 81001; 82150; 83690; 83735; 85025; 87040; 96361; 96374; 96375; 99285; J1170; J2405; J7030